=== PATIENT | male | born 1960 | race Caucasian/White ===

== ENCOUNTER 2021-11-30 05:55 | Observation (INO) ==
--- NOTE | 2021-11-29 09:47 | Anesthesiology Consultation ---
Date of Service November 29, 2021 Assessment & Plan (1) Encounter for pre-operative examination: Chart Review Chart Review: Acceptable Risk for Surgery and Patient NOT seen in Pre Admission Testing Consults Requested none History Surgery Operation Date: 11/30/21 11:55 Proposed Procedures p C6-T1 Anterior Discectomy and Fusion Spinal Cord Monitoring - Eliecer Peterson DO Height/Weight Height: 6 ft 2 in Weight: 113.398 kg Allergies Allergy/AdvReac Type Severity Reaction Status Date / Time No Known Allergies Allergy Unverified 11/28/21 12:03 Medications Home Medications Medication Instructions Recorded Confirmed Last Taken apixaban 5 mg tablet (Eliquis) 5 mg PO QAM 11/18/21 11/28/21 11/18/21 aspirin 81 mg capsule 81 mg PO QPM 11/18/21 11/28/21 Unknown diltiazem HCl 180 mg 180 mg PO QPM 11/18/21 11/28/21 Unknown capsule,extended release 24 hr montelukast 10 mg tablet 5 mg PO HS 11/18/21 11/28/21 Unknown rosuvastatin 10 mg tablet 10 mg PO QPM 11/18/21 11/28/21 Unknown prednisone 10 mg tablet 20 mg PO QAM 11/28/21 11/28/21 Unknown Past Medical History Medical History (Updated 11/29/21 @ 09:47 by Abhishek Valdez MD) Deep vein thrombosis idiopathic. followed with [facility] Hematology, Dr Palacios. ~2019. no problems since. follows with pcp currently for management. History of recent steroid use Hyperlipidemia Hypertension On anticoagulant therapy SCC (squamous cell carcinoma) Past Family History Family History Other No family history of adverse response to anesthesia Past Surgical History Surgical History H/O lumbar discectomy (~1989) L4-L5 at [facility] History of repair of rotator cuff History of surgical removal of skin lesion S/P left knee arthroscopy S/P right knee arthroscopy STOP BANG Total 3 Social History Smoking Status: Never smoker Do You Dip or Chew Tobacco: No Hx Alcohol Use: No Hx Substance Use: No substance use type: does not use Testing Laboratory Results Laboratory Tests 01/02/22 01/02/22 16:03 16:03 WBC 9.92 Hgb 16.3 Hct 48.7 Plt Count 311 Sodium 139 Potassium 4.0 Chloride 108 H Carbon Dioxide 23 BUN 29 H Creatinine 0.88 Glucose 133 H Electrocardiogram Date: 11/18/21 Findings: + NSR @ (88) NSR. Possible LAE. Septal infarct, age undetermined. Echocardiogram Date: 05/19/20 EF 55%. Preserved systolic function. RV normal size and systolic function. Other Testing 06/07/21. Negative ECG stress test with workload of 10 METS. No chest pain. No arrhythmia.
[2021-11-30] MEDS ORDERED: ceFAZolin 2000MG 2,000 MG/15 ML SYR IV SCH (06:00)
[2021-11-30] MEDS ORDERED: LR 15ML/HR IV SCH (06:00)
[2021-11-30] MEDS ORDERED: ACETAMINOPHEN 500 MG TAB PO SCH (06:00)
[2021-11-30] MEDS ORDERED: GABAPENTIN 600 MG DOSE PO SCH (06:00)
[2021-11-30] MEDS ORDERED: CeleBREX 200 MG CAP PO SCH (06:00)
[2021-11-30] MEDS ORDERED: REMIFENTANIL HCL 1 MG VIAL ONE ×2 (06:14→06:38)
[2021-11-30] MEDS ORDERED: SUGAMMADEX SODIUM 200 MG/2 ML VIAL IV ONE (06:15)
[2021-11-30] MEDS ORDERED: MIDAZOLAM HCL 1 MG/ML 2ML VIAL ONE (06:36)
[2021-11-30] MEDS ORDERED: HYDROmorphone INJ 2 MG/ML SYR/VIAL ONE (06:36)
[2021-11-30] MEDS ORDERED: KETAMINE 50 MG/5 ML SYRINGE ONE (06:36)
[2021-11-30] MEDS ORDERED: LABETALOL HCL IV 5 MG/ML 20ML IV PRN (07:01)
[2021-11-30] MEDS ORDERED: ONDANSETRON INJ 2 MG/ML 2 ML VIAL IV PRN ×2 (07:01→11:36)
[2021-11-30] MEDS ORDERED: PROMETHAZINE HCL 12.5 MG in SODIUM CHLORIDE 0.9% 50 ML IV PRN (07:01)
[2021-11-30] MEDS ORDERED: ATROPINE SULFATE 0.1 MG/ML 10ML SYR IV PRN (07:01)
--- NOTE | 2021-11-30 07:34 | History & Physical Bridge Note ---
Date of Service November 30, 2021 History & Physical Bridge Note I have examined the patient, reviewed the History & Physical and in the interval since the performance of the History & Physical I have noted the following changes of clinical significance: no changes noted
--- NOTE | 2021-11-30 07:35 | History & Physical Report ---
Date of Service November 30, 2021 Assessment & Plan (1) Cervical radiculopathy: Plan: Anterior cervical discectomy and fusion C6-C7 C7-T1 History of Present Illness Chief Complaint: Neck and arm pain Primary Care Provider: Valdo Jacobsen DO This is a 61-year-old male who presents with marked left arm pain and weakness is here for urgent surgery. Allergies Allergy/AdvReac Type Severity Reaction Status Date / Time No Known Allergies Allergy Verified 11/30/21 06:20 Home Medications Medication Instructions Recorded Confirmed Type apixaban 5 mg tablet (Eliquis) 5 mg PO QAM 11/18/21 11/30/21 History aspirin 81 mg capsule 81 mg PO QPM 11/18/21 11/30/21 History diltiazem HCl 180 mg 180 mg PO QPM 11/18/21 11/30/21 History capsule,extended release 24 hr montelukast 10 mg tablet 5 mg PO HS 11/18/21 11/30/21 History rosuvastatin 10 mg tablet 10 mg PO QPM 11/18/21 11/30/21 History prednisone 10 mg tablet 20 mg PO QAM 11/28/21 11/30/21 History Past Med/Surg History Medical History Deep vein thrombosis idiopathic. followed with [facility] Hematology, Dr Palacios. ~2019. no problems since. follows with pcp currently for management. History of recent steroid use Hyperlipidemia Hypertension On anticoagulant therapy SCC (squamous cell carcinoma) Surgical History H/O lumbar discectomy (~1989) L4-L5 at [facility] History of repair of rotator cuff History of surgical removal of skin lesion S/P left knee arthroscopy S/P right knee arthroscopy Family History Other No family history of adverse response to anesthesia Social History Smoking Status: Never smoker Second Hand Exposure: No; Do You Dip or Chew Tobacco: No; Tobacco Cessation Education Requested by Patient: No Hx Alcohol Use: No Hx Substance Use: No Preferred Language: Polish Communication Ability: Effective Scanner Supervisor Required: No Beliefs That Will Affect Care: None Current Living Situation: Spouse Other Information That Helps Us Care for You: No Feels Safe at Home: Yes Safety Concerns: Feels Safe At This Time Assistive Devices: None Physical Exam Physical Exam: Patient is alert and oriented Heart regular in rhythm Lungs clear Results & Data ([facility]) Vital Signs (Past 12 Hours) Vital Signs Temp Pulse Resp BP Pulse Ox 11/30/21 06:17 36.5 C 87 20 167/94 H 97
[2021-11-30] MEDS ORDERED: ONDANSETRON INJ 2 MG/ML 2 ML VIAL ONE (08:37)
[2021-11-30] MEDS ORDERED: ePHEDrine sulfate 50 MG/ML AMP ONE (08:37)
[2021-11-30] MEDS ORDERED: PROPOFOL IV EMULSION 10 MG/ML 20 ML VIAL IV ONE (08:37)
[2021-11-30] MEDS ORDERED: LIDOCAINE 2% 2 ML VIAL/AMP(20MG/ML) INFIL ONE (08:37)
[2021-11-30] MEDS ORDERED: DEXAMETHASONE SOD INJ 4 MG/ML VIAL ONE (08:37)
[2021-11-30] MEDS ORDERED: ROCURONIUM BROMIDE 10 MG/ML 5 ML VIAL IV ONE (08:37)
[2021-11-30] MEDS ORDERED: PROPOFOL IV EMULSION 10 MG/ML 100 ML VIAL IV ONE (08:37)
[2021-11-30] MEDS ORDERED: KETOROLAC 30 MG/ML VIAL ONE (09:05)
[2021-11-30] MEDS ORDERED: FLOSEAL HEMOSTATIC MATRIX 10ML TOP ONE (09:37)
--- NOTE | 2021-11-30 10:09 | Operative Report ---
Post Operative Report Pre & Post Diagnosis Operation Date: 11/30/21 07:45 Pre-Op Diagnosis: Spinal Stenosis, Cervical Region Post-Op Diagnosis: Spinal Stenosis, Cervical Region I identified the patient and participated in the time-out.: Yes Procedure Operation Date: 11/30/21 07:45 Actual Procedures #1 Anterior cervical discectomy with bilateral foraminotomies C6-C7 C7-T1. #2 anterior cervical arthrodesis C6-C7 C7-T1. #3 placement of 8 mm spiral cage C6- C7 10 mm spiral cage C7-T1 both filled with I factor. #4 application of mari plate and screws from C6-T1. Surgeon Eliecer Peterson, DO Husbandry Technician Rony Jimenez Estimated Blood Loss 25 Findings Consistent with Post-Op Diagnosis Specimens None Indications This is a 61-year-old male who presents with marked radiculopathy and strength deficit affecting left upper extremity. Subsequently he is here for urgent surgery. Description of Procedure Patient was met with identified informed consent obtained. Patient was then taken to the operative suite underwent a patient placed in spine position on the [place] table with head Villanueva screwhead stoner and polisher. All bony prominences well-padded eyes inspected to ensure no external pressure placed upon the. This point the anterior cervical spine was prepped and draped in normal sterile fashion. With assistance of fluoroscopy identified the C7 vertebral body and a transverse incision was placed along the right anterior aspect of the cervical spine overlying his region. Blunt dissection with the assistance of bipolar electrocautery was then performed down to and exposing the anterior cervical spine from C6-T1. Self-retaining retractors placed. Then performed a complete discectomy of C6-C7 out to the uncovertebral joints bilaterally. [place] distracting pins were utilized. Bilateral foraminotomies performed. Endplates burred to subcortical bleeding bone and 8 mm spiral cage filled with I factor tapped in position. Then proceeded to C7-T1 and again a complete discectomy was performed. Removed all posterior annular fibers longitudinal ligament massive disc material noted in the left neuroforamen was removed in its entirety. The endplates were then burred to subcortical bleeding bone and a 10 mm spiral cage filled with I factor tapped in position. Distracting apparatus was removed and a 5 complete and screws applied with the assistance of fluoroscopy. The incision was then copiously irrigated explored to ensure no damage to surrounding structures remaining bleeding. 10 round KI drain inserted. The incision was then closed with 1 Vicryl the fascia 2-0 Vicryl subcutaneously and 4 Monocryl for final skin closure. Steri-Strip sterile dressings placed. Patient waken taken to PACU stable condition. Please note spinal cord monitoring was utilized at the procedure no changes noted. Lastly Rony Jimenez was present at the entire procedure involved the patient positioning complex portions of the surgery and final skin closure. I attest to the content of the Intraoperative Record and any orders documented therein. Any exceptions are noted below.
--- NOTE | 2021-11-30 10:42 | Fluoroscopy Report ---
INTRAOPERATIVE RADIOGRAPHS CLINICAL HISTORY: C6-T1 spinal fusion. Fluoroscopy time: 14 seconds. FINDINGS: 3 spot fluoroscopic views of the cervical spine are presented. There is postoperative jewell e from discectomy at C6-C7 and C7-T1 with anterior fusion at C6-T1. The orthopedic hardware appears i ntact. IMPRESSION: Intraoperative images from cervical spinal fusion as above. Electronically signed by: Augustine Jacques M.D. 11/30/2021 10:40 AM
[2021-11-30] MEDS: HYDROmorphone INJ 1 MG/ML SYRINGE IV PRN ×3 (10:54→13:22)
--- NOTE | 2021-11-30 11:19 | Anesthesiology Progress Note ---
Date of Service November 30, 2021 Anesthesia Post Procedure Vital Signs Vital Signs: Temp Pulse Pulse Resp BP Pulse Ox 11/30/21 11:10 36.5 C 76 14 138/89 95 11/30/21 11:00 80 18 131/85 93 11/30/21 10:50 82 14 151/97 H 98 11/30/21 10:40 77 12 147/92 H 97 11/30/21 10:30 76 14 155/91 H 97 11/30/21 10:20 36.4 C L 80 12 155/95 H 97 11/30/21 06:17 36.5 C 87 20 167/94 H 97 Pain Intensity Neck: Pain Intensity: 2 Transfer of Care Handoff Completed per policy Notes Mental Status: alert / awake / arousable Patient Amnestic to Procedure: Yes Nausea / Vomiting: adequately controlled Pain: adequately controlled Airway Patency, RR, SpO2: stable & adequate BP & HR: stable & adequate Hydration State: stable & adequate Anesthetic Complications: no major complications apparent
[2021-11-30] MEDS ORDERED: ACETAMINOPHEN 1,000 MG/100 ML VIAL IV PRN (11:36)
[2021-11-30] MEDS ORDERED: ACETAMINOPHEN 500 MG TAB PO PRN (11:36)
[2021-11-30] MEDS ORDERED: FAMOTIDINE 20 MG TAB PO PRN (11:36)
[2021-11-30] MEDS ORDERED: ALUMINUM/MAGNESIUM SUSP 30 ML UDC PO PRN (11:36)
[2021-11-30] MEDS ORDERED: LORazepam 0.5 MG TAB PO PRN (11:36)
[2021-11-30] MEDS ORDERED: traMADol HCL 50 MG TABLET PO PRN (11:36)
[2021-11-30] MEDS ORDERED: PROMETHAZINE HCL IV PRN (11:36)
[2021-11-30] MEDS ORDERED: dexAMETHasone 8 MG in SYRINGE 0 ML IV PRN (11:36)
[2021-11-30] MEDS ORDERED: ONDANSETRON 4 MG OD TAB PO PRN (11:36)
[2021-11-30] MEDS ORDERED: SOD PHOSPHATE/SOD BIPHOSPHATE ENEMA 132 ML BTL PR PRN (11:36)
[2021-11-30] MEDS ORDERED: DEXTROSE 5% IV PRN (11:36)
[2021-11-30] MEDS ORDERED: RACEPINEPHRINE 2.25% NEBU SOLN 0.5 ML VIAL INH PRN (11:36)
[2021-11-30] MEDS ORDERED: NALOXONE HCL 0.4 MG/1 ML VIAL/CARP IV PRN (11:36)
[2021-11-30] MEDS ORDERED: MAGNESIUM HYDROXIDE SUSP 30 ML UDC PO PRN (11:36)
[2021-11-30] MEDS ORDERED: hydrOXYzine HCl 25 MG TAB PO PRN (11:36)
[2021-11-30] MEDS ORDERED: oxyCODONE HCL IR 5 MG TAB (IMMEDIATE RELEASE) PO PRN (11:36)
[2021-11-30] MEDS ORDERED: METOCLOPRAMIDE HCL INJ 5 MG/ML 2 ML VIAL IV PRN (11:36)
[2021-11-30] MEDS ORDERED: LORazepam 0.5 MG/1 ML VIAL IV PRN (11:36)
[2021-11-30] MEDS ORDERED: HYDROmorphone INJ 1 MG/ML SYRINGE IV PRN (11:36)
[2021-11-30] MEDS ORDERED: bisacodyL 10 MG SUPP PR PRN (11:36)
[2021-11-30] MEDS ORDERED: DO NOT ADMINISTER PNEUMOCOCCAL VACCINE PRN (11:36)
[2021-11-30] MEDS ORDERED: diphenhydrAMINE Capsule 25 MG CAP PO PRN (11:36)
[2021-11-30] MEDS ORDERED: DO NOT ADMINISTER FLU VACCINE PRN (11:36)
[2021-11-30] MEDS: LACTATED RINGER'S 1,000 ML IV SCH ×3 (12:16→23:44)
[2021-11-30] MEDS: HYDROmorphone INJ 0.5 MG/0.5 ML SYR IV PRN ×2 (14:39→21:31)
--- NOTE | 2021-11-30 16:17 | Consultation ---
Date of Consultation November 30, 2021 Assessment & Plan (1) S/P spinal surgery: Post op day# 0 S/P ACDF by Dr Kristen SIMONS#25ml -pain management per ortho -wound management per ortho -PT/OT as appropriate -DVT prophylaxis per ortho -monitor H&H for acute blood loss anemia, Pre-op Hgb: 16.3 (2) H/O paroxysmal supraventricular tachycardia: -Continue diltiazem (3) Hypertension: -Continue diltiazem (4) Hyperlipidemia: -Continue rosuvastatin (5) History of pulmonary embolism: Reports unprovoked PE in 2019. On chronic Eliquis -Eliquis on hold currently DVT Prophylaxis -SCDs Disposition per primary service Follows with Dr Lowe in [place] for routine care Pt was seen and care coordinated with Dr Rosen. See addendum Thank you for this consultation. We will follow the patient with you during their hospital stay. You can reach a [facility]/06 via [facility] Supervising Physician Co-Signing Physician Notes Care coordinated with Meghan Plunkett PA-C. Agree with above note. P atient seen and examined. Please refer to her notes for full details. Vital signs reviewed. Physical exam: General exam: Alert and oriented. Not in acute distress. Neck: in neck collar CVS: S1 and S2 heard, regular rate and rhythm, no murmurs. RS: Clear to auscultation, no wheezing or crackles. ABD: Soft, bowel sounds present, nontender, no distention. CHORAL DIRECTOR: Nonfocal. EXT: No edema, no erythema. Labs: Reviewed. Assessment and plan: 61M hx of unproved PE on eliquis, Hx of PSVT is s/p cervical spine surgery. Meghan says his was having weakness in his left hand and pain in shoulder for several weeks now. 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 S/p Cervical spine discectomy C6-7 management as per ortho. Hx of PE unprovoked 2019 on eliquis which is held for surgery to restart as soon as possible. hx of PSVT on diltiazem will monitor Other diagnosis and plan of care as per Meghan Plunkett PA-C.. Mariano mckenna MD. History of Present Illness Requesting Physician: Dr Peterson Reason for Consultation: Post op medical management Attending Physician: Eliecer Peterson, DO History of Present Illness Patient is a 61-year-old male with PMH HTN, HLD, paroxysmal SVT, h/o unprovoked PE in 2019 has been on chronic Eliquis since seen in medical consultation s/p ACDF today by Dr. Peterson. Postop patient reports he is doing well. Reports pain is controlled. Prior to surgery patient had significant weakness to the left hand and meter installer strength, postop patient is happy that his meter installer strength has returned. Reports some paresthesias to left fingers which were present prior to surgery as well. Patient is drinking soda and water and denies any choking. Denies fever/chills, diaphoresis, N/V/D/C, BETANCOURT, dizziness, vision changes, CP, SOB, orthopnea, palpitations, cough, sore throat, choking, otalgia, rhinorrhea, abdominal pain, extremity edema, rashes, urinary symptoms. Allergies Allergy/AdvReac Type Severity Reaction Status Date / Time No Known Allergies Allergy Verified 11/30/21 06:20 Home Medications Medication Instructions Recorded Confirmed Type apixaban 5 mg tablet (Eliquis) 5 mg PO QAM 11/18/21 11/30/21 History aspirin 81 mg capsule 81 mg PO QPM 11/18/21 11/30/21 History diltiazem HCl 180 mg 180 mg PO QPM 11/18/21 11/30/21 History capsule,extended release 24 hr montelukast 10 mg tablet 5 mg PO HS 11/18/21 11/30/21 History rosuvastatin 10 mg tablet 10 mg PO QPM 11/18/21 11/30/21 History prednisone 10 mg tablet 20 mg PO QAM 11/28/21 11/30/21 History gabapentin 300 mg capsule 300 mg PO HS 11/30/21 11/30/21 History oxycodone 5 mg tablet 5 mg PO Q6H PRN #20 tab 11/30/21 Rx tramadol 50 mg tablet 50 mg PO Q6H PRN #20 tab 11/30/21 Rx Patient History Medical History (Updated 11/30/21 @ 17:01 by Meghan Plunkett PA-C) Deep vein thrombosis idiopathic. followed with [facility] Hematology, Dr Palacios. ~2019. no problems since. follows with pcp currently for management. H/O paroxysmal supraventricular tachycardia History of pulmonary embolism History of recent steroid use Hyperlipidemia Hypertension On anticoagulant therapy SCC (squamous cell carcinoma) Surgical History (Updated 11/30/21 @ 17:01 by Meghan Plunkett PA-C) H/O lumbar discectomy (~1989) L4[facility]L5 at [facility] History of repair of rotator cuff History of surgical removal of skin lesion S/P left knee arthroscopy S/P right knee arthroscopy Family History Other No family history of adverse response to anesthesia Social History Smoking Status: Never smoker Second Hand Exposure: No; Do You Dip or Chew Tobacco: No; Tobacco Cessation Education Requested by Patient: No Hx Alcohol Use: No Hx Substance Use: No Preferred Language: Syriac Communication Ability: Effective Dip Unit Operator Required: No Beliefs That Will Affect Care: None Current Living Situation: Spouse Other Information That Helps Us Care for You: No Feels Safe at Home: Yes Safety Concerns: Feels Safe At This Time Assistive Devices: None Review of Systems Review of Systems: All systems reviewed & are unremarkable except as noted in HPI & below Physical Exam Physical Exam: General: no distress, WDWN Head: normocephalic, atraumatic Eyes: conjunctiva non-injected, anicteric ENT: normal inspection external ears, nose, mucous membranes moist Neck: anterior neck with surgical dressing in place and is dry, +KI drain with scant amount of serosanguineous draiange, supple, trachea midline Lungs: clear, no respiratory distress, no wheezing/rhonchi/rales CV: RRR, no murmur, no pretibial edema Abd: normal BS, soft, non-tender Ext: no cyanosis, no calf tenderness Neuro: A&O x 3, no focal deficits noted, normal affect Skin: warm, dry Results & Data ([facility]) Vital Signs (Past 12 Hours) Vital Signs Temp Pulse Pulse Pulse Resp BP Pulse Ox 11/30/21 14:20 36.8 C 96 H 16 143/90 H 93 11/30/21 14:15 85 17 140/84 92 11/30/21 13:45 36.5 C 91 H 15 143/85 H 94 11/30/21 13:22 97 H 14 94 11/30/21 13:15 87 18 127/82 92 11/30/21 13:00 88 16 134/83 93 11/30/21 12:45 85 14 140/75 92 11/30/21 12:30 85 16 137/81 93 11/30/21 12:15 85 12 143/87 H 94 11/30/21 12:00 79 14 139/89 93 11/30/21 11:45 82 18 139/89 93 11/30/21 11:30 83 20 132/88 93 11/30/21 11:20 74 20 138/87 94 11/30/21 11:10 36.5 C 76 14 138/89 95 11/30/21 11:00 80 18 131/85 93 11/30/21 10:50 82 14 151/97 H 98 11/30/21 10:40 77 12 147/92 H 97 11/30/21 10:30 76 14 155/91 H 97 11/30/21 10:20 36.4 C L 80 12 155/95 H 97 11/30/21 06:17 36.5 C 87 20 167/94 H 97
[2021-11-30] MEDS: dexAMETHasone 6 MG in SYRINGE 0 ML IV SCH ×2 (16:36→23:45)
[2021-11-30] MEDS: ceFAZolin 2000MG 2,000 MG/15 ML SYR IV SCH ×2 (16:36→23:45)
[2021-11-30] MEDS ORDERED: dilTIAZem HCL 180 MG CAPCR PO SCH (21:00)
[2021-11-30] MEDS ORDERED: GABAPENTIN 300 MG CAP PO SCH (21:00)
[2021-11-30] MEDS ORDERED: ROSUVASTATIN CALCIUM 10 MG TAB PO SCH (21:00)
[2021-11-30] MEDS ORDERED: ASPIRIN 81 MG ECTAB PO SCH (21:00)
[2021-11-30] MEDS ORDERED: DOCUSATE SODIUM/SENNA 50/8.6MG TAB PO SCH (21:00)
[2021-11-30] MEDS ORDERED: MONTELUKAST SODIUM 10 MG TABLET PO SCH (21:00)
[2021-12-01] MEDS: POLYETHYLENE (MIRALAX) 17 GM PACK PO SCH ×2 (06:05→11:29)
[2021-12-01] MEDS: dexAMETHasone 6 MG in SYRINGE 0 ML IV SCH (08:04)
--- NOTE | 2021-12-01 08:39 | Discharge Summary ---
Date of Service December 01, 2021 Admission HPI Per Admitting Provider This is a 61-year-old male who presents with marked left arm pain and weakness is here for urgent surgery. Discharge Data Consultations 11/30/21 11:36 Consult Hospitalist Routine Procedures Performed Operation Date: 11/30/21 07:45 Actual Procedures p C6-T1 Anterior Discectomy and Fusion, Spinal Cord Monitoring(Not Applicable) - Eliecer Peterson DO Hospital Course (1) Cervical radiculopathy: Patient is a pleasant 61-year-old male history physical examination Images consistent with the above-mentioned diagnosis. For this reason is brought to the operating room on 11/30/2021 and undergone anterior cervical discectomy and fusion at C6-7 and C7-T1. He left the operating room with a KI drain in place and is transferred PACU in stable condition. Postoperative day 1 he is doing well his pain is controlled he is tolerating p.o. and swallowing well. And he is deemed safe for home discharge. He is not to lift anything heavier than 5 to [address] He is to keep his collar in place when he is up and walking or in a motor vehicle. He is to change dressing once daily until the dressing is dry once it is dry he may leave it off. He is to see us in the office approximately 2 weeks or sooner if he develops any increased pain numbness tingling difficulty swallowing or drainage from the incision.
[2021-12-01 10:57] LABS: Hemoglobin 14.3 g/dL (14.0-18.0); Mean Corpuscular Hemoglobin 30.1 pg (25-34); Mean Corpuscular Hgb Conc 33.3 g/dL (32-36); Mean Corpuscular Volume 90.5 fL (80-100); Platelet Count 220 K/uL (130-400); RDW Coefficient of Variation 13.9 % (11.5-14.5); Red Blood Count 4.75 M/uL (4.7-6.1)
[2021-12-01 11:26] LABS: Calcium 8.6 mg/dl (8.5-10.1); Creatinine Clr Calc Pharmacy 165.4 ml/min; Est GFR (African American) 124.1 ml/min; Est GFR (Non-African American) 107.1 ml/min; Potassium 4.1 mmol/L (3.5-5.1)
--- NOTE | 2021-12-01 16:06 | Hospitalist Progress Note ---
Date of Service December 01, 2021 Assessment & Plan (1) S/P spinal surgery: Plan: (1) S/P spinal surgery: Post op day# 1 S/P ACDF by Dr Kristen SIMONS#25ml Pain management/PT/OT/DVT prophylaxis per Ortho. Monitor H&H for acute blood loss anemia Incentive spirometer. (2) H/O paroxysmal supraventricular tachycardia: -Continue diltiazem (3) Hypertension: -Continue diltiazem (4) Hyperlipidemia: -Continue rosuvastatin (5) History of pulmonary embolism: Reports unprovoked PE in 2019. On chronic Eliquis -Eliquis to be resumed per orthopedics. DVT Prophylaxis -SCDs Disposition per primary service Admission and Anticipated Discharge Date Admission Date: November 30, 2021 Subjective Patient was lying in bed, on room air, NAD, with cervical collar, KI drain in situ with minimal serosanguineous collection, no new acute events overnight, pain under control. Patient denies fever/chills/chest pain/palpitations/other review of symptoms. Patient reports eating okay. Patient is moving gas but hasn't moved bowel. Patient reports pain well controlled. Physical Exam Physical Exam: GENERAL: Alert and oriented x3. NAD, on RA. HEENT: No pallor, no icterus. Pupils equal, round and reactive to light. Oral mucosa moist. NECK: No JVD, no neck masses. Cervical collar in situ, KI drain in situ, clean dressing with no soakage. KI drain with minimal serosanguineous collection noted. HEART: S1 and S2 heard. Regular rate and rhythm. No murmur, no gallop. RESPIRATORY SYSTEM: Normal AP diameter. No accessory muscle use. No wheezing, no crackles. ABDOMEN: Soft, bowel sounds present, nontender, no distention. CENTRAL NERVOUS SYSTEM: No facial droop. Speech is clear. Obeys simple commands. Moves extremities. EXTREMITIES: Trace BLE edema, no erythema seen. Results & Data Results & Data ([facility]) Vital Signs (Past 12 Hours) Vital Signs Temp Pulse Pulse Resp BP BP Pulse Ox 12/01/21 11:30 36.6 C 71 91 H 16 145/91 H 143/90 H 93 12/01/21 11:08 91 H 16 93 12/01/21 09:49 36.6 C 71 89 16 145/91 H 143/90 H 92 12/01/21 08:01 89 16 92 12/01/21 06:01 36.6 C 86 18 145/91 H 92 12/01/21 04:05 71 18 92
== END 2021-12-01 12:58 | disposition home or self-care (01) ==
LOC: ASU 05:55 → INTOOBSV 10:12 → PACUINP 10:12 → 3E 14:39

== ENCOUNTER 2023-03-26 09:03 | Inpatient (IN) ==
[2023-03-26] MEDS ORDERED: STAT IV Infusion **Titration per Protocol STA (09:31)
[2023-03-26] MEDS ORDERED: dilTIAZem HCl 5 MG/ML 5 ML VIAL IV STA (09:31)
--- NOTE | 2023-03-26 09:35 | Emergency Department Note ---
Impression & Plan Atrial fibrillation with rapid ventricular response, SOB (shortness of breath), Weakness, Fatigue ED Provider Note NAME: ROSIBEL BEASLEY AGE: 62 SEX: M : 1960 ARRIVES VIA: Walk-In INFORMANT: [Patient] ED PROVIDER(S): [Augustine Estrada MD] CHIEF COMPLAINT: Palpitations, arrhythmia HISTORY OF PRESENT ILLNESS: The patient is a 62-year-old male with a history of DVT as well as A-fib. He has undergone previous ablation for A-fib. He is still on Cardizem as well as Eliquis. In the last week, the patient has felt very short of breath, weak and tired. He has noticed shortness of breath primarily with exertion. No chest pain, no palpitations. Patient saw Dr. Darby of cardiology today. He was found to be in a rapid A-fib, he was sent to the ED for evaluation and potential admission. PMHx/PSHx: See Below SOCIAL HISTORY: See Below. PHYSICAL EXAM: GENERAL: Patient is in no acute distress. HEENT: No acute trauma, normocephalic atraumatic, mucous membranes moist, no nasal congestion. NECK: No stridor, no adenopathy, no meningismus, trachea is midline. LUNGS: Clear to auscultation bilaterally, no wheeze, no rhonchi, breath sounds equal. HEART: Tachycardic with an irregular rhythm, no murmurs. ABDOMEN: Soft, nontender, bowel sounds positive, no peritonitis. EXTREMITIES: No cyanosis or edema, full range of motion of all the joints without pain or difficulty, no signs for acute trauma. NEUROLOGIC: Oriented x 3, no acute motor or sensory deficits, no focal weakness. SKIN: No rash, no jaundice, no diaphoresis. DIFFERENTIAL DIAGNOSIS: A-fib or a flutter, anemia, electrolyte imbalance, ventricular tachycardia, SVT, KS, among others. EMERGENCY DEPARTMENT COURSE/PROCEDURES: Prior/Outside records reviewed: Cardiology notes. ECG per my interpretation: Indication was weakness and tachycardia. The ECG shows a rapid A-fib with a rate of 138. There is some nonspecific ST change diffusely. There is potential old septal infarct. There is no ST elevation, no PVCs. The QTc is 460. Continuous Cardiac Monitoring per my interpretation: An order was placed for continuous cardiac monitoring. The monitor shows a rate of 142 with rapid atrial fibrillation. Critical Care Note: I have personally spent 48 minutes of critical care time in the direct management of this patient. This includes bedside care, interpretation of diagnostic studies, and testing, discussion with consultants, patient, and family members, and other required patient management activities. This 48 minutes is in excess of all separately billable procedures. MEDICAL DECISION MAKING: There is no leukocytosis or concerning anemia. There is a normal platelet count. No renal failure or significant electrolyte abnormality. No concerning liver enzyme elevation. The patient appears to be in a euthyroid state. ECG shows rapid atrial fibrillation, no obvious ischemia. Cardiac enzyme testing x1 is not consistent with acute cardiac injury. COVID test returned negative. Chest film per my review did not show CHF or pneumonia. On exam, the patient was tachycardic and appeared to be in atrial fibrillation. Patient received an IV bolus of diltiazem, he was placed on a diltiazem drip. The patient's heart rate is now controlled although, he remains in atrial fibrillation. I spoke with the patient, I spoke with case management. I did consult Dr. Darby of cardiology. Hospitalization has been advised. I spoke with the on-call hospitalist. The patient is aware of the need for a hospital stay. DISPOSITION: The patient's presentation and findings warrant a hospital stay. Past Med/Surg History Medical History Deep vein thrombosis idiopathic. followed with [facility] Hematology, Dr Palacios. ~2019. no problems since. follows with pcp currently for management. H/O paroxysmal supraventricular tachycardia History of pulmonary embolism History of recent steroid use Hyperlipidemia Hypertension On anticoagulant therapy SCC (squamous cell carcinoma) Surgical History H/O lumbar discectomy (~1989) L4-L5 at [facility] History of repair of rotator cuff History of surgical removal of skin lesion S/P left knee arthroscopy S/P right knee arthroscopy Family History Other No family history of adverse response to anesthesia Social History Smoking Status: Never smoker Second Hand Exposure: No; Do You Dip or Chew Tobacco: No; Hx Alcohol Use: No Hx Substance Use: No Preferred Language: Irish Communication Ability: Effective [employer] Required: No Beliefs That Will Affect Care: None Current Living Situation: Spouse Other Information That Helps Us Care for You: No Feels Safe at Home: Yes Safety Concerns: Feels Safe At This Time Assistive Devices: None Allergies Allergies Allergy/AdvReac Type Severity Reaction Status Date / Time No Known Allergies Allergy Verified 07/02/22 07:31 Home Meds Home Medications Medication Instructions Recorded Confirmed apixaban 5 mg tablet (Eliquis) 5 mg PO BID 11/18/21 03/26/23 aspirin 81 mg capsule 81 mg PO QAM 11/18/21 03/26/23 diltiazem HCl 180 mg 240 mg PO QAM 11/18/21 03/26/23 capsule,extended release 24 hr rosuvastatin 10 mg tablet 10 mg PO QPM 11/18/21 03/26/23 montelukast 10 mg tablet 10 mg PO HS 03/26/23 03/26/23 Previous Rx's Medication Instructions Recorded albuterol sulfate 90 mcg/actuation 2 inha inhalation QID PRN 08/16/22 aerosol inhaler shortness of breath or wheezing #1 inhaler Results & Data (ED) Vital Signs Vital Signs - 24 hr 03/26/23 09:12 03/26/23 09:39 03/26/23 09:39 Temperature 36.1 C L Temperature Source Temporal Artery Scan Pulse Rate 77 138 H Pulse Rate [Apical] 121 H Pulse Rate from SpO2 Sensor Pulse Rhythm Irregular Pulse Rhythm [Apical] Irregular Respiratory Rate 24 18 18 Respiratory Effort / Characteristics Non-Labored Spontaneous Non-Labored Spontaneous Respiratory Depth Normal Normal Respiratory Pattern Regular Blood Pressure 118/80 Blood Pressure [Right Arm] 140/102 H Blood Pressure Mean 92 Blood Pressure Mean [Right Arm] 114 Pulse Oximetry 95 95 95 Oxygen Delivery Method Room Air Room Air Room Air Sepsis New/Unexplained Change in Mental Status N/A Sepsis Action Taken by Nursing No Action Required 03/26/23 09:55 03/26/23 10:20 03/26/23 10:00 Temperature Temperature Source Pulse Rate 124 H 117 H Pulse Rate [Apical] Pulse Rate from SpO2 Sensor 84 Pulse Rhythm Pulse Rhythm [Apical] Respiratory Rate 21 Respiratory Effort / Characteristics Non-Labored Spontaneous Respiratory Depth Normal Respiratory Pattern Regular Blood Pressure 130/88 Blood Pressure [Right Arm] Blood Pressure Mean 102 Blood Pressure Mean [Right Arm] Pulse Oximetry 92 Oxygen Delivery Method Room Air Sepsis New/Unexplained Change in Mental Status Sepsis Action Taken by Nursing 03/26/23 10:30 03/26/23 10:30 03/26/23 10:45 Temperature Temperature Source Pulse Rate 84 87 Pulse Rate [Apical] Pulse Rate from SpO2 Sensor 87 76 Pulse Rhythm Pulse Rhythm [Apical] Respiratory Rate 16 23 Respiratory Effort / Characteristics Respiratory Depth Respiratory Pattern Blood Pressure 115/86 Blood Pressure [Right Arm] Blood Pressure Mean 95 Blood Pressure Mean [Right Arm] Pulse Oximetry 94 94 Oxygen Delivery Method Sepsis New/Unexplained Change in Mental Status Sepsis Action Taken by Nursing 03/26/23 11:00 03/26/23 11:00 03/26/23 11:15 Temperature Temperature Source Pulse Rate 80 80 Pulse Rate [Apical] Pulse Rate from SpO2 Sensor 82 84 Pulse Rhythm Pulse Rhythm [Apical] Respiratory Rate 18 18 Respiratory Effort / Characteristics Respiratory Depth Respiratory Pattern Blood Pressure 130/83 Blood Pressure [Right Arm] Blood Pressure Mean 98 Blood Pressure Mean [Right Arm] Pulse Oximetry 95 95 Oxygen Delivery Method Sepsis New/Unexplained Change in Mental Status Sepsis Action Taken by Nursing 03/26/23 11:30 03/26/23 11:30 03/26/23 11:45 Temperature Temperature Source Pulse Rate 80 90 Pulse Rate [Apical] Pulse Rate from SpO2 Sensor 74 82 Pulse Rhythm Pulse Rhythm [Apical] Respiratory Rate 20 15 Respiratory Effort / Characteristics Respiratory Depth Respiratory Pattern Blood Pressure 111/75 Blood Pressure [Right Arm] Blood Pressure Mean 87 Blood Pressure Mean [Right Arm] Pulse Oximetry 95 95 Oxygen Delivery Method Sepsis New/Unexplained Change in Mental Status Sepsis Action Taken by [place] Medications Current Medication List: was personally reviewed by me Laboratory Data Attestation: I reviewed the patient's lab results. 03/26/23 09:41 03/26/23 09:41 Lab Results 03/26/23 03/26/23 03/26/23 Range/Units 09:41 09:41 09:41 WBC 7.00 (4.8-10.8) K/ul RBC 5.28 (4.70-6.10) M/uL Hgb 15.3 (14.0-18.0) g/dl Hct 46.1 (42.0-52.0) % MCV 87.3 (80.0-100.0) fL MCH 29.0 (25.0-34.0) pg MCHC 33.2 (32.0-36.0) g/dL RDW Std Deviation 43.0 (36.4-46.3) fL RDW Coeff of Stanley 13.4 (11.5-14.5) % Plt Count 379 (130-400) K/uL MPV 9.1 L (9.4-12.4) fL Immature Gran % (Auto) 0.4 % Neut % (Auto) 66.5 % Lymph % (Auto) 19.0 % Lawrence % (Auto) 12.0 % Eos % (Auto) 1.4 % Baso % (Auto) 0.7 % Neut # (Auto) 4.65 (1.40-6.50) K/uL Lymph # (Auto) 1.33 (1.2-3.4) K/uL Lawrence # (Auto) 0.84 H (0.11-0.59) K/uL Eos # (Auto) 0.10 (0-0.50) K/uL Baso # (Auto) 0.05 (0-0.2) K/uL Immature Gran # (Auto) 0.03 (0.01-0.20) K/uL Sodium 139 (136-145) mmol/L Potassium 4.1 (3.5-5.1) mmol/L Chloride 109 H (98-107) mmol/L Carbon Dioxide 24 (21-32) mmol/L Anion Gap 6 (3-11) BUN 21 (6-23) mg/dl Creatinine 0.68 (0.6-1.4) mg/dl Est Cr Clr Drug Dosing 154.0 ml/min Est GFR ( Amer) 119.5 ml/min Est GFR (Non-Af Amer) 103.1 ml/min BUN/Creatinine Ratio 30.9 H (10-20) Glucose 89 (70-99(Fasting)) mg/dl Calcium 8.6 (8.6-10.3) mg/dl Magnesium 2.0 (1.7-2.4) mg/dl Total Bilirubin 0.4 (0.2-1.0) mg/dl AST 14 (13-39) U/L ALT 21 (7-52) U/L Alkaline Phosphatase 85 (34-104) U/L Troponin I High Sens 5.6 (0-20) pg/ml Total Protein 6.7 (6.0-8.3) gm/dl Albumin 3.8 (3.4-5.0) gm/dl Globulin 2.9 (2.5-4.0) gm/dl Albumin/Globulin Ratio 1.3 (0.9-2) TSH 2.215 (0.300-4.500) uIu/ml SARS-CoV-2, RNA, NAAT (NEGATIVE) 03/26/23 Range/Units 09:45 WBC (4.8-10.8) K/ul RBC (4.70-6.10) M/uL Hgb (14.0-18.0) g/dl Hct (42.0-52.0) % MCV (80.0-100.0) fL MCH (25.0-34.0) pg MCHC (32.0-36.0) g/dL RDW Std Deviation (36.4-46.3) fL RDW Coeff of Stanley (11.5-14.5) % Plt Count (130-400) K/uL MPV (9.4-12.4) fL Immature Gran % (Auto) % Neut % (Auto) % Lymph % (Auto) % Lawrence % (Auto) % Eos % (Auto) % Baso % (Auto) % Neut # (Auto) (1.40-6.50) K/uL Lymph # (Auto) (1.2-3.4) K/uL Lawrence # (Auto) (0.11-0.59) K/uL Eos # (Auto) (0-0.50) K/uL Baso # (Auto) (0-0.2) K/uL Immature Gran # (Auto) (0.01-0.20) K/uL Sodium (136-145) mmol/L Potassium (3.5-5.1) mmol/L Chloride (98-107) mmol/L Carbon Dioxide (21-32) mmol/L Anion Gap (3-11) BUN (6-23) mg/dl Creatinine (0.6-1.4) mg/dl Est Cr Clr Drug Dosing ml/min Est GFR ( Amer) ml/min Est GFR (Non-Af Amer) ml/min BUN/Creatinine Ratio (10-20) Glucose (70-99(Fasting)) mg/dl Calcium (8.6-10.3) mg/dl Magnesium (1.7-2.4) mg/dl Total Bilirubin (0.2-1.0) mg/dl AST (13-39) U/L ALT (7-52) U/L Alkaline Phosphatase (34-104) U/L Troponin I High Sens (0-20) pg/ml Total Protein (6.0-8.3) gm/dl Albumin (3.4-5.0) gm/dl Globulin (2.5-4.0) gm/dl Albumin/Globulin Ratio (0.9-2) TSH (0.300-4.500) uIu/ml SARS-CoV-2, RNA, NAAT NEGATIVE (NEGATIVE) Administered Medications Diltiazem HCl 125 mg/ Dextrose 125 mls @ 5 mls/hr IV .Q24H TSERING; Protocol Stop: 04/25/23 09:44 Last Admin: 03/26/23 10:16 Dose: 5 mg/hr, 5 mls/hr Documented By: JAKUB Co-signed By: AMBER Discontinued Medications Diltiazem HCl (Diltiazem Hcl 5 Mg/Ml 5 Ml Vial) 15 mg IV NOW STA Stop: 03/26/23 09:32 Last Admin: 03/26/23 10:15 Dose: 15 mg Documented By: JAKUB Co-signed By: AMBER Miscellaneous (Stat Iv Infusion Titration Per Protocol) 1 each N/A NOW STA Stop: 03/26/23 09:32 Last Admin: 03/26/23 11:20 Dose: 1 each Documented By: RACHELLE Imaging Data Radiologist's Impression: Chest X-Ray 03/26/23 09:20 XR chest 1V portable CLINICAL HISTORY: weakness TECHNIQUE: Single frontal radiograph of the chest was obtained. Comparison: Comparison is made to chest radiograph 08/16/2022 FINDINGS: ACDF is seen. Calcified aortic knob is seen. The lungs are clear. No evidence of pleural effusion or pneumothorax. IMPRESSION: No acute chest disease. ACT 112: Negative or not required by law. Electronically signed by: Ramirez Colvin M.D. 03/26/2023 10:14 AM Discharge Plan Visit Data Chief Complaint: Arrhythmia/Palpitations Stated Complaint: HEART PALPITATIONS,DOC REF ED Provider: Augustine Estrada Discharge Problem: Atrial fibrillation with rapid ventricular response, SOB (shortness of breath), Weakness, Fatigue Patient Disposition: Admitted As Inpatient Condition: Fair Discharge Instructions Interventions: ED Discharge Assessment Last Done: 03/26/23 13:57
[2023-03-26] MEDS ORDERED: dilTIAZem HCL 125 MG in DEXTROSE 5% 100 ML IV SCH (09:45)
[2023-03-26 09:53] LABS: Basophils # (auto) 0.05 K/uL (0-0.2); Basophils % (auto) 0.7 %; Eosinophils % (auto) 1.4 %; Hematocrit (blood only) 46.1 % (42.0-52.0); Hemoglobin 15.3 g/dl (14.0-18.0); Immature Granulocytes # (auto) 0.03 K/uL (0.01-0.20); Immature Granulocytes % (auto) 0.4 %; Lymphocytes # (auto) 1.33 K/uL (1.2-3.4); Mean Corpuscular Hgb Conc 33.2 g/dL (32.0-36.0); Mean Corpuscular Volume 87.3 fL (80.0-100.0); Mean Platelet Volume 9.1 fL (9.4-12.4); Monocytes # (auto) 0.84 K/uL (0.11-0.59); Neutrophils # (auto) 4.65 K/uL (1.40-6.50); Neutrophils % (auto) 66.5 %; Platelet Count 379 K/uL (130-400); RDW Coefficient of Variation 13.4 % (11.5-14.5); Red Blood Count 5.28 M/uL (4.70-6.10)
[2023-03-26 10:15] LABS: Albumin Level 3.8 gm/dl (3.4-5.0); Bilirubin,Total 0.4 mg/dl (0.2-1.0); Calcium 8.6 mg/dl (8.6-10.3); Potassium 4.1 mmol/L (3.5-5.1)
--- NOTE | 2023-03-26 10:16 | XRay Report ---
XR chest 1V portable CLINICAL HISTORY: weakness TECHNIQUE: Single frontal radiograph of the chest was obtained. Comparison: Comparison is made to chest radiograph 08/16/2022 FINDINGS: ACDF is seen. Calcified aortic knob is seen. The lungs are clear. No evidence of pleural effusion or pneumothorax. IMPRESSION: No acute chest disease. ACT 112: Negative or not required by law. Electronically signed by: Ramirez Colvin M.D. 03/26/2023 10:14 AM
[2023-03-26 10:21] LABS: Albumin Globulin Ratio 1.3 (0.9-2); BUN Creatinine Ratio 30.9 (10-20); Est GFR (African American) 119.5 ml/min; Est GFR (Non-African American) 103.1 ml/min; Globulin 2.9 gm/dl (2.5-4.0); Total Protein 6.7 gm/dl (6.0-8.3)
[2023-03-26 10:22] LABS: Troponin I High Sensitivity 5.6 pg/ml (0-20)
--- NOTE | 2023-03-26 11:32 | History & Physical Report ---
Date of Service March 26, 2023 Assessment & Plan (1) Atrial fibrillation with RVR: (2) H/O paroxysmal supraventricular tachycardia: (3) Hypertension: (4) Hyperlipidemia: (5) History of pulmonary embolism: Plan: - Admit to PCU while on diltiazem drip, appear rate much better controlled presently with HR in 80s-90s. -A-fib with RVR noted with heart rate in the 130s at outpatient cardiology office, patient has previously followed with both Dr. Velasco and Dr. Darby. Was referred to the ER from there. -Cardiology consulted- pending recommendations, patient may require cardioversion, Allow diet for now, keep NPO at midnight in case needs for ablation -Anticoagulated on Eliquis status post PE which occurred in 2019, patient presumes this is from COVID infection -Patient is on diltiazem p.o. baby aspirin, rosuvastatin, as an outpatient. He reports taking propafenone previously on as needed basis, he has not taken this in many months. Patient also was previously on amiodarone but has been taken off of it. -Status post cardiac ablation approximately [address] Tai DVT ppx: teds, scds, eliquis CODE: FULL Dispo: From home, likely to remain in the hospital x 1-2 days A total of 75 minutes were spent with greater than 50% of that time face to face with the patient, personally reviewing all current laboratories, imaging studies, past medication reconciliation, outpatient chart review, and discussion with specialists to collaborate care for the patient with attending. Please see attending documentation for corrections and/or additions. History of Present Illness Chief Complaint: Palpitations Primary Care Provider: Valdo Jacobsen DO This is a 62-year-old male with PMHx of atrial flutter who underwent an atrial flutter ablation in April 2002 with a history of PAF during the procedure, HTN, HLD, history of PE in 2019 on Eliquis. Patient has been followed by [facility] cardiology, Dr. Darby as an outpatient. He had been on propafenone and amiodarone previously after atrial flutter ablation, however both of these medicines have been stopped he is take p.o. di ltiazem.. Starting about 7 days ago he noticed increased palpitations and fatigue. He reports difficulty walking with minimal exertion, states that he feels winded even after 10-20 steps. Patient reports that he in the middle the night when getting up to use the restroom feels that he has a small panic attack because he is so short of breath upon returning and takes him a while to calm down and go back to sleep. Denies orthopnea. He has never required supplemental O2 previously. Patient denies any chest pain, heaviness, nausea or vomiting. From cardiology office the patient was referred to the ER for further treatment of A-fib with RVR as his heart rate was 130. It has now improved to heart rate in the 80s after initiation of Cardizem drip in the ER. Allergies Allergy/AdvReac Type Severity Reaction Status Date / Time No Known Allergies Allergy Verified 07/02/22 07:31 Home Medications Medication Instructions Recorded Confirmed Type apixaban 5 mg tablet (Eliquis) 5 mg PO BID 11/18/21 03/26/23 History aspirin 81 mg capsule 81 mg PO QAM 11/18/21 03/26/23 History diltiazem HCl 180 mg 240 mg PO QAM 11/18/21 03/26/23 History capsule,extended release 24 hr rosuvastatin 10 mg tablet 10 mg PO QPM 11/18/21 03/26/23 History albuterol sulfate 90 mcg/actuation 2 inha inhalation QID PRN 08/16/22 03/26/23 Rx aerosol inhaler shortness of breath or wheezing #1 inhaler montelukast 10 mg tablet 10 mg PO HS 03/26/23 03/26/23 History Past Med/Surg History Medical History Deep vein thrombosis idiopathic. followed with [facility] Hematology, Dr Palacios. ~2019. no problems since. follows with pcp currently for management. H/O paroxysmal supraventricular tachycardia History of pulmonary embolism History of recent steroid use Hyperlipidemia Hypertension On anticoagulant therapy SCC (squamous cell carcinoma) Surgical History H/O lumbar discectomy (~1989) L4[facility]L5 at [facility] History of repair of rotator cuff History of surgical removal of skin lesion S/P left knee arthroscopy S/P right knee arthroscopy Family History Other No family history of adverse response to anesthesia Social History Smoking Status: Never smoker Second Hand Exposure: No; Do You Dip or Chew Tobacco: No; Hx Alcohol Use: No Hx Substance Use: No Preferred Language: Portuguese Communication Ability: Effective Line Service Technician Required: No Beliefs That Will Affect Care: None Current Living Situation: Spouse Feels Safe at Home: Yes Assistive Devices: Glasses Review of Systems Review of Systems: Constitutional: No fever, chills, sweats, fatigue or weakness Eyes: No diplopia, no changes in vision ENT: No sore throat, tinnitus, or trouble swallowing Respiratory: No shortness of breath, No dyspnea at rest or on exertion, no cough or sputum Cardiovascular: No chest pain, palpitations, or flutter Abdomen: No pain, No constipation, No diarrhea, No nausea, No vomiting Musculoskeletal: No calf pain, No joint pain, No swelling Genitourinary : No dysuria or urinary frequency, No hematuria Neurologic: No numbness/tingling, no difficulty with ambulation, no sensory or motor deficits Psychiatric: No depression or anxiety symptoms Endocrine: No fatigue, No weight changes Integumentary: No itch, No rash Physical Exam Physical Exam: General: awake, alert, no apparent distress, + obese with BMI of 34.6 Head: Normocephalic, atraumatic ENT: PERRL, EOMI, no pharyngeal exudate, mucous membranes moist Chest: Clear to auscultation, on room air, no adventitious breath sounds Cardiac: Irregularly irregular, HR in 90s-110s at bedside, no murmur, no JVD, normal peripheral pulses, good capillary refill Abdominal: NABS x 4 quadrants, soft, nondistended, nontender to palpation, no rebound or guarding Extremities: Normal inspection, no peripheral edema or erythema, calfs nontender to palpation Psych: Normal mood and affect Neuro: AAO x 3, strength intact bilaterally and rated 5/5, no motor deficits, speech is clear, no peripheral sensory deficits Results & Data Results & Data Vital Signs (Past 12 Hours) Vital Signs Temp Pulse Pulse Resp BP BP Pulse Ox 03/26/23 10:00 117 H 21 130/88 92 03/26/23 10:20 03/26/23 09:55 124 H 03/26/23 09:39 138 H 18 95 03/26/23 09:39 121 H 18 140/102 H 95 03/26/23 09:12 36.1 C L 77 24 118/80 95 O2 Del Method 03/26/23 10:00 03/26/23 10:20 Room Air 03/26/23 09:55 03/26/23 09:39 Room Air 03/26/23 09:39 Room Air 03/26/23 09:12 Room Air Laboratory Results 03/26/23 03/26/23 03/26/23 09:45 09:41 09:41 WBC RBC Hgb Hct MCV MCH MCHC RDW Std Deviation RDW Coeff of Stanley Plt Count MPV Immature Gran % (Auto) Neut % (Auto) Lymph % (Auto) [place] % (Auto) Eos % (Auto) Baso % (Auto) Neut # (Auto) Lymph # (Auto) [place] # (Auto) Eos # (Auto) Baso # (Auto) Immature Gran # (Auto) Sodium 139 Potassium 4.1 Chloride 109 H Carbon Dioxide 24 Anion Gap 6 BUN 21 Creatinine 0.68 Est Cr Clr Drug Dosing 154.0 Est GFR ( Amer) 119.5 Est GFR (Non-Af Amer) 103.1 BUN/Creatinine Ratio 30.9 H Glucose 89 Calcium 8.6 Magnesium 2.0 Total Bilirubin 0.4 AST 14 ALT 21 Alkaline Phosphatase 85 Troponin I High Sens 5.6 Total Protein 6.7 Albumin 3.8 Globulin 2.9 Albumin/Globulin Ratio 1.3 TSH 2.215 SARS-CoV-2, RNA, NAAT NEGATIVE 03/26/23 09:41 WBC 7.00 RBC 5.28 Hgb 15.3 Hct 46.1 MCV 87.3 MCH 29.0 MCHC 33.2 RDW Std Deviation 43.0 RDW Coeff of Stanley 13.4 Plt Count 379 MPV 9.1 L Immature Gran % (Auto) 0.4 Neut % (Auto) 66.5 Lymph % (Auto) 19.0 [place] % (Auto) 12.0 Eos % (Auto) 1.4 Baso % (Auto) 0.7 Neut # (Auto) 4.65 Lymph # (Auto) 1.33 [place] # (Auto) 0.84 H Eos # (Auto) 0.10 Baso # (Auto) 0.05 Immature Gran # (Auto) 0.03 Sodium Potassium Chloride Carbon Dioxide Anion Gap BUN Creatinine Est Cr Clr Drug Dosing Est GFR ( Amer) Est GFR (Non-Af Amer) BUN/Creatinine Ratio Glucose Calcium Magnesium Total Bilirubin AST ALT Alkaline Phosphatase Troponin I High Sens Total Protein Albumin Globulin Albumin/Globulin Ratio TSH SARS-CoV-2, RNA, NAAT Diagnostic Findings Chest X-Ray 03/26/23 09:20 XR chest 1V portable CLINICAL HISTORY: weakness TECHNIQUE: Single frontal radiograph of the chest was obtained. Comparison: Comparison is made to chest radiograph 08/16/2022 FINDINGS: ACDF is seen. Calcified aortic knob is seen. The lungs are clear. No evidence of pleural effusion or pneumothorax. IMPRESSION: No acute chest disease. ACT 112: Negative or not required by law. Electronically signed by: Ramirez Colvin M.D. 03/26/2023 10:14 AM ECG Additional Comments: atrial fibrillation with RVR Code Status & VTE Plan Code Status Full code Supervising Physician Co-Signing Physician Notes I have seen and examined the patient and have discussed the case with the provider above. I agree with the assessment and plan as stated. The patient is a 62-year-old man with a history of atrial flutter status post ablation in April 2002 presenting with 1 week of shortness of breath and chest discomfort. In cardiac clinic this morning he was diagnosed with atrial flutter with rapid ventricular response and sent to the ER. The patient denies any caffeine intake aside from a once daily tea. He does not use any energy drinks or other stimulants. He does not smoke or drink alcohol. Thyroid function is within normal limits. He does not examine as volume overloaded. He received 15 mg of diltiazem IV and was put on a diltiazem drip with subsequent rate decrease from 138bpm to 90bpm. He still feels chest discomfort but it is slightly improved. He reports not using propafenone which he had been taking as needed for heart palpitations. He is not on amiodarone. He is on Eliquis continuously after having a PE 2 to 3 years ago. Physical exam reveals a well-nourished well-developed man in no acute distress. He is speaking in full sentences and is demonstrating normal respiratory effort. Lungs are clear to auscultation throughout. Cardiac exam reveals S1-S2 heard with no evidence of murmurs gallops or rubs. Rate is irregular and rhythm is irregular. Radial pulses are 2+ bilaterally. Pulse is irregular. Skin is warm and dry. Abdomen soft nontender nondistended. He has no evidence of peripheral edema. No gross neuro muscular deficits are present. Work-up includes an EKG revealing atrial fibrillation with rapid ventricular response with a rate of 138. There are no ST changes to suggest acute ischemia. A chest x-ray reveals no acute chest disease. Lab work reveals a normal CBC and normal CMP. Highly sensitive troponin is negative 1. Atrial fibrillation with rapid trickle response Agree with continuing diltiazem for rate control. Continue Eliquis per home regimen. Consult cardiology who is considering DC cardioversion likely tomorrow. N.p.o. after midnight. Supportive care for chest discomfort at this time. Notify MD immediately for any evidence of hypotension. DO Zay
[2023-03-26] MEDS ORDERED: FLECAINIDE ACETATE 100 MG TABLET PO ONE (13:42)
[2023-03-26] MEDS ORDERED: ONDANSETRON INJ 2 MG/ML 2 ML VIAL IV PRN (14:29)
[2023-03-26] MEDS ORDERED: ACETAMINOPHEN 325 MG TAB PO PRN (14:29)
--- NOTE | 2023-03-26 14:30 | Cardiology Consultation ---
Date of Consultation March 26, 2023 Assessment & Plan (1) Atrial fibrillation with RVR: (2) History of pulmonary embolism: (3) Hypertension: (4) Hyperlipidemia: (5) S/P ablation of atrial flutter: Plan 62-year male admitted secondary to symptomatic paroxysmal atrial fibrillation with rapid ventricular response. History of flutter ablation 2021. Symptoms improved with IV diltiazem infusion. Compliant with oral anticoagulation. Recommend 300 mg oral flecainide x1 now to attempt chemical cardioversion. If patient remains in atrial fibrillation will plan elective external direct- current cardioversion in a.m. N.p.o. except medications after midnight. History of Present Illness Reason for Consultation: Paroxysmal atrial fibrillation with rapid ventricular response Requesting Physician: Dr. Collazo Attending Physician: Dejah Collazo, History of Present Illness 62-year-old patient present to the outpatient clinic today for routine follow-up complaining of shortness of breath. ECG confirming atrial fibrillation with rapid ventricular response. Referred to the emergency department for further evaluation and treatment. Describes shortness of breath for nearly 10 days primarily during exertion. No chest discomfort or heaviness. Notes ankle edema near the end of the day. No lightheadedness, dizziness, syncope, or near syncope. Works full-time as a high school industrial arts teacher. Allergies Allergy/AdvReac Type Severity Reaction Status Date / Time No Known Allergies Allergy Verified 07/02/22 07:31 Home Medications Medication Instructions Recorded Confirmed Type apixaban 5 mg tablet (Eliquis) 5 mg PO BID 11/18/21 03/26/23 History aspirin 81 mg capsule 81 mg PO QAM 11/18/21 03/26/23 History diltiazem HCl 180 mg 240 mg PO QAM 11/18/21 03/26/23 History capsule,extended release 24 hr rosuvastatin 10 mg tablet 10 mg PO QPM 11/18/21 03/26/23 History albuterol sulfate 90 mcg/actuation 2 inha inhalation QID PRN 08/16/22 03/26/23 Rx aerosol inhaler shortness of breath or wheezing #1 inhaler montelukast 10 mg tablet 10 mg PO HS 03/26/23 03/26/23 History Patient History Medical History Deep vein thrombosis idiopathic. followed with [facility] Hematology, Dr Palacios. ~2019. no problems since. follows with pcp currently for management. H/O paroxysmal supraventricular tachycardia History of pulmonary embolism History of recent steroid use Hyperlipidemia Hypertension On anticoagulant therapy SCC (squamous cell carcinoma) Surgical History H/O lumbar discectomy (~1989) L4[facility]L5 at [facility] History of repair of rotator cuff History of surgical removal of skin lesion S/P left knee arthroscopy S/P right knee arthroscopy Family History Other No family history of adverse response to anesthesia Social History Smoking Status: Never smoker Second Hand Exposure: No; Do You Dip or Chew Tobacco: No; Hx Alcohol Use: No Hx Substance Use: No Preferred Language: Ethiopian Communication Ability: Effective Braider Tender Required: No Beliefs That Will Affect Care: None Current Living Situation: Spouse Other Information That Helps Us Care for You: No Feels Safe at Home: Yes Safety Concerns: Feels Safe At This Time Assistive Devices: None Review of Systems Review of Systems: All systems reviewed & are unremarkable except as noted in Subjective Physical Exam Constitutional: well nourished; no acute distress Respiratory: no respiratory distress, no labored breathing and no retractions Auscultation: no crackles, no rales, no rhonchi and no wheezes Cardiovascular: Rate/Rhythm: regular rate and regular rhythm Heart Sounds: normal S1 and normal S2; no murmur Vessels: no JVD and no carotid bruit Extremities: no edema Gastrointestinal (Abdomen): Inspection/Auscultation: normal bowel sounds; abdomen not distended Percussion/Palpation: + abdomen rigid; abdomen nontender, no guarding and + abdomen not soft Neurologic: CN's II-XI intact bilaterally and moves all extremities Psychiatric: A+Ox3, euthymic affect Results & Data Vital Signs (Past 12 Hours) Vital Signs Temp Pulse Pulse Resp BP BP Pulse Ox 03/26/23 11:45 90 15 95 03/26/23 11:30 80 20 95 03/26/23 11:30 111/75 03/26/23 11:15 80 18 95 03/26/23 11:00 80 18 95 03/26/23 11:00 130/83 03/26/23 10:45 87 23 94 03/26/23 10:30 84 16 94 03/26/23 10:30 115/86 03/26/23 10:00 117 H 21 130/88 92 03/26/23 10:20 03/26/23 09:55 124 H 03/26/23 09:39 138 H 18 95 03/26/23 09:39 121 H 18 140/102 H 95 03/26/23 09:12 36.1 C L 77 24 118/80 95 O2 Del Method 03/26/23 11:45 03/26/23 11:30 03/26/23 11:30 03/26/23 11:15 03/26/23 11:00 03/26/23 11:00 03/26/23 10:45 03/26/23 10:30 03/26/23 10:30 03/26/23 10:00 03/26/23 10:20 Room Air 03/26/23 09:55 03/26/23 09:39 Room Air 03/26/23 09:39 Room Air 03/26/23 09:12 Room Air Laboratory Results Cardiac Enzymes 03/26/23 Range/Units 09:41 AST 14 (13-39) U/L Troponin I High Sens 5.6 (0-20) pg/ml CBC 03/26/23 Range/Units 09:41 WBC 7.00 (4.8-10.8) K/ul RBC 5.28 (4.70-6.10) M/uL Hgb 15.3 (14.0-18.0) g/dl Hct 46.1 (42.0-52.0) % Plt Count 379 (130-400) K/uL Neut # (Auto) 4.65 (1.40-6.50) K/uL Lymph # (Auto) 1.33 (1.2-3.4) K/uL Cottle # (Auto) 0.84 H (0.11-0.59) K/uL Eos # (Auto) 0.10 (0-0.50) K/uL Baso # (Auto) 0.05 (0-0.2) K/uL Comprehensive Metabolic Panel 03/26/23 Range/Units 09:41 Sodium 139 (136-145) mmol/L Potassium 4.1 (3.5-5.1) mmol/L Chloride 109 H (98-107) mmol/L Carbon Dioxide 24 (21-32) mmol/L BUN 21 (6-23) mg/dl Creatinine 0.68 (0.6-1.4) mg/dl Glucose 89 (70-99(Fasting)) mg/dl Calcium 8.6 (8.6-10.3) mg/dl AST 14 (13-39) U/L ALT 21 (7-52) U/L Alkaline Phosphatase 85 (34-104) U/L Total Protein 6.7 (6.0-8.3) gm/dl Albumin 3.8 (3.4-5.0) gm/dl Intake and Output 03/25/23 03/26/23 03/26/23 22:59 06:59 14:59 Other: Weight 118.8 kg Weight Measurement Method Chair Scale Patient Weight 03/27/23 06:59 Weight 118.8 kg
[2023-03-26] MEDS: MONTELUKAST SODIUM 10 MG TABLET PO SCH (20:41)
[2023-03-26] MEDS: ROSUVASTATIN CALCIUM 10 MG TAB PO SCH (20:41)
[2023-03-26] MEDS: APIXABAN 5 MG TABLET PO SCH (20:41)
--- NOTE | 2023-03-26 21:17 | Communication Note ---
Date of Service: March 26, 2023 Patient converted to NSR as per RN. LISSETTE Cardizem drip. Resume oral Cardizem and initiate flecainide 50 mg BID in a.m. as per discussion with Dr. Velasco of Cardiology.
--- NOTE | 2023-03-27 05:37 | Electrocardiogram Report ---
Test Reason : Blood Pressure : / mmHG Vent. Rate : 138 BPM Atrial Rate : 000 BPM P-R Int : 000 ms QRS Dur : 084 ms QT Int : 304 ms P-R-T Axes : 000 -20 053 degrees QTc Int : 460 ms Atrial fibrillation with rapid ventricular response Septal infarct (cited on or before 16-AUG-2022) Abnormal ECG When compared with ECG of 16-AUG-2022 14:52, Atrial fibrillation has replaced Sinus rhythm Confirmed by Kai Downing ([id number]) on 03/27/2023 5:37:26 AM Referred By: Confirmed By:Kai Downing
[2023-03-27 06:44] LABS: Hematocrit (blood only) 44.8 % (42.0-52.0); Hemoglobin 14.7 g/dl (14.0-18.0); Mean Corpuscular Hemoglobin 29.2 pg (25.0-34.0); Mean Corpuscular Hgb Conc 32.8 g/dL (32.0-36.0); Mean Corpuscular Volume 89.1 fL (80.0-100.0); Platelet Count 349 K/uL (130-400); RDW Coefficient of Variation 13.8 % (11.5-14.5); RDW Standard Deviation 44.2 fL (36.4-46.3); Red Blood Count 5.03 M/uL (4.70-6.10)
[2023-03-27 07:53] LABS: Estimated Average Glucose 128 mg/dl; Hemoglobin A1C 6.1 % (4.5-5.6)
[2023-03-27 08:03] LABS: Calcium 8.2 mg/dl (8.6-10.3); Potassium 4.2 mmol/L (3.5-5.1)
[2023-03-27 08:09] LABS: BUN Creatinine Ratio 29.6 (10-20); Chol HDL Ratio 3.9 (0-5); Creatinine Clr Calc Pharmacy 129.6 ml/min; Est GFR (African American) 111.2 ml/min; Est GFR (Non-African American) 95.9 ml/min
--- NOTE | 2023-03-27 08:39 | Hospitalist Progress Note ---
Date of Service March 27, 2023 Assessment & Plan (1) Atrial fibrillation with RVR: (2) H/O paroxysmal supraventricular tachycardia: (3) Hypertension: (4) Hyperlipidemia: (5) History of pulmonary embolism: Plan: - A-fib with RVR noted with heart rate in the 130s at outpatient cardiology office, patient has previously followed with both Dr. Velasco and Dr. Darby. Was referred to the ER from there. - Initially on diltiazem drip -> on PO diltiazem - Cardiology consulted- pt started on flecainide and converted NSRlast evening -Anticoagulated on Eliquis status post PE which occurred in 2019, patient presumes this is from COVID infection -Patient is on diltiazem p.o. baby aspirin, rosuvastatin, as an outpatient. He reports taking propafenone previously on as needed basis, he has not taken this in many months. Patient also was previously on amiodarone but has been taken off of it. -Status post cardiac ablation approximately [address] Farmer 03/27 Pt currently in sinus rhythm, but reports some shortness of breath/ chest tightness CXR obtained this AM - unremarkable Cardiology following and echo obtained -EF 60 to 65%. There is borderline concentric LVH. LV wall motion is normal. Grade 1 diastolic dysfunction DVT ppx: eliquis CODE: FULL Dispo: From home, likely to remain in the hospital x 1-2 days Admission and Anticipated Discharge Date Admission Date: March 26, 2023 Subjective Pt seen in follow up of Afib w/ RVR Converted yesterday evening to NSR Currently sitting up in bed, in NAD, breathing on RA and saturating 97% Reports some shortness of breath, still and so CXR repeated this AM - unremarkable Pt reports some mild dry cough since Friday. No chest pain/ but reports some poss. chest tightness No fever, chills, no abd. pain, no nausea, vomit. Cardiology following - plan to obtain echo Review of Systems Review of Systems: All systems reviewed & are unremarkable except as noted in Subjective Physical Exam Physical Exam: General: awake, alert, obese M in NAD, breathing on RA, saturating 97% Head: Normocephalic, atraumatic ENT: PERRL, EOMI, mucous membranes moist Chest: Clear to auscultation, on room air, no adventitious breath sounds Cardiac: rrr, no murmur, no JVD Abdominal: NABS x 4 quadrants, soft, nondistended, nontender to palpation Extremities: Normal inspection, no peripheral edema or erythema, moves extremities Neuro: AAO x 3, speech is clear, moves extremities Results & Data Results & Data Vital Signs (Past 12 Hours) Vital Signs Temp Pulse Pulse Resp BP Pulse Ox O2 Del Method 03/27/23 07:22 70 03/27/23 03:26 36.6 C 74 18 139/88 92 Room Air 03/26/23 22:53 85 03/26/23 23:11 36.7 C 78 18 138/91 94 Room Air Laboratory Results 03/27/23 03/27/23 03/27/23 Range/Units 06:17 06:17 06:17 WBC 6.30 (4.8-10.8) K/ul RBC 5.03 (4.70-6.10) M/uL Hgb 14.7 (14.0-18.0) g/dl Hct 44.8 (42.0-52.0) % MCV 89.1 (80.0-100.0) fL MCH 29.2 (25.0-34.0) pg MCHC 32.8 (32.0-36.0) g/dL RDW Std Deviation 44.2 (36.4-46.3) fL RDW Coeff of Stanley 13.8 (11.5-14.5) % Plt Count 349 (130-400) K/uL MPV 9.0 L (9.4-12.4) fL Immature Gran % (Auto) % Neut % (Auto) % Lymph % (Auto) % Archer % (Auto) % Eos % (Auto) % Baso % (Auto) % Neut # (Auto) (1.40-6.50) K/uL Lymph # (Auto) (1.2-3.4) K/uL Archer # (Auto) (0.11-0.59) K/uL Eos # (Auto) (0-0.50) K/uL Baso # (Auto) (0-0.2) K/uL Immature Gran # (Auto) (0.01-0.20) K/uL Sodium 140 (136-145) mmol/L Potassium 4.2 (3.5-5.1) mmol/L Chloride 106 (98-107) mmol/L Carbon Dioxide 29 (21-32) mmol/L Anion Gap 5 (3-11) BUN 24 H (6-23) mg/dl Creatinine 0.81 (0.6-1.4) mg/dl Est Cr Clr Drug Dosing 129.6 ml/min Est GFR ( Amer) 111.2 ml/min Est GFR (Non-Af Amer) 95.9 ml/min BUN/Creatinine Ratio 29.6 H (10-20) Glucose 94 (70-99(Fasting)) mg/dl Estimat Average Glucose 128 mg/dl Hemoglobin A1c 6.1 H (4.5-5.6) % Calcium 8.2 L (8.6-10.3) mg/dl Magnesium 2.0 (1.7-2.4) mg/dl Total Bilirubin (0.2-1.0) mg/dl AST (13-39) U/L ALT (7-52) U/L Alkaline Phosphatase (34-104) U/L Troponin I High Sens (0-20) pg/ml Total Protein (6.0-8.3) gm/dl Albumin (3.4-5.0) gm/dl Globulin (2.5-4.0) gm/dl Albumin/Globulin Ratio (0.9-2) Triglycerides 145 (0-150) mg/dl Cholesterol 146 (0-200) mg/dl LDL Cholesterol, Calc 80 mg/dl VLDL Cholesterol, Calc 29 (0-30) mg/dl HDL Cholesterol 37 mg/dl Cholesterol/HDL Ratio 3.9 (0-5) TSH (0.300-4.500) uIu/ml SARS-CoV-2, RNA, NAAT (NEGATIVE) 03/26/23 03/26/23 03/26/23 Range/Units 20:48 15:00 09:45 WBC (4.8-10.8) K/ul RBC (4.70-6.10) M/uL Hgb (14.0-18.0) g/dl Hct (42.0-52.0) % MCV (80.0-100.0) fL MCH (25.0-34.0) pg MCHC (32.0-36.0) g/dL RDW Std Deviation (36.4-46.3) fL RDW Coeff of Stanley (11.5-14.5) % Plt Count (130-400) K/uL MPV (9.4-12.4) fL Immature Gran % (Auto) % Neut % (Auto) % Lymph % (Auto) % Archer % (Auto) % Eos % (Auto) % Baso % (Auto) % Neut # (Auto) (1.40-6.50) K/uL Lymph # (Auto) (1.2-3.4) K/uL Archer # (Auto) (0.11-0.59) K/uL Eos # (Auto) (0-0.50) K/uL Baso # (Auto) (0-0.2) K/uL Immature Gran # (Auto) (0.01-0.20) K/uL Sodium (136-145) mmol/L Potassium (3.5-5.1) mmol/L Chloride (98-107) mmol/L Carbon Dioxide (21-32) mmol/L Anion Gap (3-11) BUN (6-23) mg/dl Creatinine (0.6-1.4) mg/dl Est Cr Clr Drug Dosing ml/min Est GFR ( Amer) ml/min Est GFR (Non-Af Amer) ml/min BUN/Creatinine Ratio (10-20) Glucose (70-99(Fasting)) mg/dl Estimat Average Glucose mg/dl Hemoglobin A1c (4.5-5.6) % Calcium (8.6-10.3) mg/dl Magnesium (1.7-2.4) mg/dl Total Bilirubin (0.2-1.0) mg/dl AST (13-39) U/L ALT (7-52) U/L Alkaline Phosphatase (34-104) U/L Troponin I High Sens 4.8 5.7 (0-20) pg/ml Total Protein (6.0-8.3) gm/dl Albumin (3.4-5.0) gm/dl Globulin (2.5-4.0) gm/dl Albumin/Globulin Ratio (0.9-2) Triglycerides (0-150) mg/dl Cholesterol (0-200) mg/dl LDL Cholesterol, Calc mg/dl VLDL Cholesterol, Calc (0-30) mg/dl HDL Cholesterol mg/dl Cholesterol/HDL Ratio (0-5) TSH (0.300-4.500) uIu/ml SARS-CoV-2, RNA, NAAT NEGATIVE (NEGATIVE) 03/26/23 03/26/23 03/26/23 Range/Units 09:41 09:41 09:41 WBC 7.00 (4.8-10.8) K/ul RBC 5.28 (4.70-6.10) M/uL Hgb 15.3 (14.0-18.0) g/dl Hct 46.1 (42.0-52.0) % MCV 87.3 (80.0-100.0) fL MCH 29.0 (25.0-34.0) pg MCHC 33.2 (32.0-36.0) g/dL RDW Std Deviation 43.0 (36.4-46.3) fL RDW Coeff of Stanley 13.4 (11.5-14.5) % Plt Count 379 (130-400) K/uL MPV 9.1 L (9.4-12.4) fL Immature Gran % (Auto) 0.4 % Neut % (Auto) 66.5 % Lymph % (Auto) 19.0 % Archer % (Auto) 12.0 % Eos % (Auto) 1.4 % Baso % (Auto) 0.7 % Neut # (Auto) 4.65 (1.40-6.50) K/uL Lymph # (Auto) 1.33 (1.2-3.4) K/uL Archer # (Auto) 0.84 H (0.11-0.59) K/uL Eos # (Auto) 0.10 (0-0.50) K/uL Baso # (Auto) 0.05 (0-0.2) K/uL Immature Gran # (Auto) 0.03 (0.01-0.20) K/uL Sodium 139 (136-145) mmol/L Potassium 4.1 (3.5-5.1) mmol/L Chloride 109 H (98-107) mmol/L Carbon Dioxide 24 (21-32) mmol/L Anion Gap 6 (3-11) BUN 21 (6-23) mg/dl Creatinine 0.68 (0.6-1.4) mg/dl Est Cr Clr Drug Dosing 154.0 ml/min Est GFR ( Amer) 119.5 ml/min Est GFR (Non-Af Amer) 103.1 ml/min BUN/Creatinine Ratio 30.9 H (10-20) Glucose 89 (70-99(Fasting)) mg/dl Estimat Average Glucose mg/dl Hemoglobin A1c (4.5-5.6) % Calcium 8.6 (8.6-10.3) mg/dl Magnesium 2.0 (1.7-2.4) mg/dl Total Bilirubin 0.4 (0.2-1.0) mg/dl AST 14 (13-39) U/L ALT 21 (7-52) U/L Alkaline Phosphatase 85 (34-104) U/L Troponin I High Sens 5.6 (0-20) pg/ml Total Protein 6.7 (6.0-8.3) gm/dl Albumin 3.8 (3.4-5.0) gm/dl Globulin 2.9 (2.5-4.0) gm/dl Albumin/Globulin Ratio 1.3 (0.9-2) Triglycerides (0-150) mg/dl Cholesterol (0-200) mg/dl LDL Cholesterol, Calc mg/dl VLDL Cholesterol, Calc (0-30) mg/dl HDL Cholesterol mg/dl Cholesterol/HDL Ratio (0-5) TSH 2.215 (0.300-4.500) uIu/ml SARS-CoV-2, RNA, NAAT (NEGATIVE) Medications Administered Current Inpatient Medications Acetaminophen (Acetaminophen 325 Mg Tab) 650 mg PO Q4H PRN PRN Reason: Moderate Pain (Scale 4, 5, 6) Stop: 04/25/23 14:28 Apixaban (Apixaban 5 Mg Tablet) 5 mg PO BID [facility] Stop: 04/25/23 20:59 Last Admin: 03/26/23 20:41 Dose: 5 mg Aspirin (Aspirin 81 Mg Ectab) 81 mg PO QAM [facility] Stop: 04/26/23 08:59 Diltiazem HCl (Diltiazem Hcl 240 Mg Capcr) 240 mg PO QAM [facility] Stop: 04/26/23 08:59 Flecainide Acetate (Flecainide Acetate 100 Mg Tablet) 50 mg PO BID [facility] Stop: 04/26/23 08:59 Montelukast Sodium (Montelukast Sodium 10 Mg Tablet) 10 mg PO HS [facility] Stop: 04/25/23 20:59 Last Admin: 03/26/23 20:41 Dose: 10 mg Ondansetron HCl (Ondansetron Inj 2 Mg/Ml 2 Ml Vial) 4 mg IV Q4H PRN PRN Reason: Nausea And Vomiting Stop: 04/25/23 14:28 Rosuvastatin Calcium (Rosuvastatin Calcium 10 Mg Tab) 10 mg PO QPM [facility] Stop: 04/25/23 20:59 Last Admin: 03/26/23 20:41 Dose: 10 mg
[2023-03-27] MEDS ORDERED: FLECAINIDE ACETATE 100 MG TABLET PO SCH (09:00)
[2023-03-27] MEDS: APIXABAN 5 MG TABLET PO SCH ×2 (09:02→20:35)
[2023-03-27] MEDS: ASPIRIN 81 MG ECTAB PO SCH (09:02)
[2023-03-27] MEDS: dilTIAZem HCL 240 MG CAPCR PO SCH (09:03)
--- NOTE | 2023-03-27 09:42 | XRay Report ---
XR chest 1V portable HISTORY: shortness of breath COMPARISON: Chest 03/26/2023. FINDINGS: The lungs are clear. Cardiac silhouette is normal in size. No pleural effusions. No pneumot horax. Cervical spinal fusion hardware is again noted. Mild calcifications within the aortic knob. IMPRESSION: No acute process. ACT 112: Negative or not required by law. Electronically signed by: Vinicius Li M.D. 03/27/2023 9:40 AM
--- NOTE | 2023-03-27 12:10 | Cardiology Progress Note ---
Date of Service March 27, 2023 Assessment & Plan (1) Atrial fibrillation with RVR: (2) History of pulmonary embolism: (3) Hypertension: (4) Hyperlipidemia: (5) S/P ablation of atrial flutter: Plan 62-year male admitted secondary to symptomatic paroxysmal atrial fibrillation with rapid ventricular response. History of flutter ablation 2021. Successfully converted from atrial fibrillation to sinus rhythm with 300 mg of oral flecainide. Recommend flecainide 100 mg twice daily. A repeat limited echocardiogram will be performed due to ongoing dyspnea. Continue diltiazem and Eliquis as previously ordered. Admission and Anticipated Discharge Date Admission Date: March 26, 2023 Subjective Patient seen examined the bedside. Converted to sinus rhythm last night. Remains in sinus rhythm this morning. Shortness of breath improved, however, continues to note mild dyspnea on exertion. No lower extremity edema. Denies orthopnea or PND. Denies chest discomfort. Review of Systems Review of Systems: All systems reviewed & are unremarkable except as noted in Subjective Physical Exam Constitutional: well nourished; no acute distress Respiratory: no respiratory distress, no labored breathing and no retractions Auscultation: no crackles, no rales, no rhonchi and no wheezes Cardiovascular: Rate/Rhythm: regular rate and regular rhythm Heart Sounds: normal S1 and normal S2; no murmur Vessels: no JVD and no carotid bruit Extremities: no edema Gastrointestinal (Abdomen): Inspection/Auscultation: normal bowel sounds; abdomen not distended Percussion/Palpation: + abdomen rigid; abdomen nontender, no guarding and + abdomen not soft Neurologic: CN's II-XI intact bilaterally and moves all extremities Psychiatric: A+Ox3, euthymic affect Results & Data Vital Signs (Past 12 Hours) Vital Signs Temp Pulse Pulse Resp BP Pulse Ox O2 Del Method 03/27/23 09:35 Room Air 03/27/23 08:00 36.7 C 87 20 148/81 H 98 Room Air 03/27/23 07:22 70 03/27/23 03:26 36.6 C 74 18 139/88 92 Room Air Laboratory Results Cardiac Enzymes 03/26/23 03/26/23 Range/Units 15:00 20:48 Troponin I High Sens 5.7 4.8 (0-20) pg/ml Lipids 03/27/23 Range/Units 06:17 Triglycerides 145 (0-150) mg/dl Cholesterol 146 (0-200) mg/dl HDL Cholesterol 37 mg/dl Cholesterol/HDL Ratio 3.9 (0-5) CBC 03/27/23 Range/Units 06:17 WBC 6.30 (4.8-10.8) K/ul RBC 5.03 (4.70-6.10) M/uL Hgb 14.7 (14.0-18.0) g/dl Hct 44.8 (42.0-52.0) % Plt Count 349 (130-400) K/uL Comprehensive Metabolic Panel 03/27/23 Range/Units 06:17 Sodium 140 (136-145) mmol/L Potassium 4.2 (3.5-5.1) mmol/L Chloride 106 (98-107) mmol/L Carbon Dioxide 29 (21-32) mmol/L BUN 24 H (6-23) mg/dl Creatinine 0.81 (0.6-1.4) mg/dl Glucose 94 (70-99(Fasting)) mg/dl Calcium 8.2 L (8.6-10.3) mg/dl Intake and Output 03/26/23 03/27/23 03/27/23 22:59 06:59 14:59 Intake Total 200 / 350 150 / 350 Balance 200 / 350 150 / 350 Intake: IV 50 / 50 dilTIAZem HCL 125 mg In 50 / 50 Dextrose 5% 100 ml @ 5 MG/HR 5 mls/hr IV .Q24H [facility] Rx#: [id number] Oral 150 / 300 150 / 300 Other: # Unmeasured Voids 2 Weight 119.4 kg Weight Measurement Method Built in [facility]
[2023-03-27] MEDS ORDERED: FUROSEMIDE INJ 20 MG/2 ML VIAL IV ONE (15:56)
[2023-03-27] MEDS: FLECAINIDE ACETATE 100 MG TABLET PO SCH (20:34)
[2023-03-27] MEDS: ROSUVASTATIN CALCIUM 10 MG TAB PO SCH (20:34)
[2023-03-27] MEDS: MONTELUKAST SODIUM 10 MG TABLET PO SCH (20:34)
--- NOTE | 2023-03-28 05:22 | Electrocardiogram Report ---
Test Reason : Blood Pressure : / mmHG Vent. Rate : 083 BPM Atrial Rate : 083 BPM P-R Int : 194 ms QRS Dur : 104 ms QT Int : 412 ms P-R-T Axes : 050 -13 050 degrees QTc Int : 484 ms Normal sinus rhythm Septal infarct (cited on or before 16-AUG-2022) Prolonged QT Abnormal ECG When compared with ECG of 26-MAR-2023 09:21, Sinus rhythm has replaced Atrial fibrillation Vent. rate has decreased BY 55 BPM Confirmed by Kai Downing ([id number]) on 03/28/2023 5:22:08 AM Referred By: Rony Darby Confirmed By:Kai Downing
[2023-03-28 07:09] LABS: Hematocrit (blood only) 48.4 % (42.0-52.0); Hemoglobin 15.6 g/dl (14.0-18.0); Mean Corpuscular Hemoglobin 28.8 pg (25.0-34.0); Mean Corpuscular Hgb Conc 32.2 g/dL (32.0-36.0); Mean Corpuscular Volume 89.5 fL (80.0-100.0); Mean Platelet Volume 9.1 fL (9.4-12.4); Platelet Count 366 K/uL (130-400); RDW Coefficient of Variation 13.6 % (11.5-14.5); RDW Standard Deviation 44.5 fL (36.4-46.3); Red Blood Count 5.41 M/uL (4.70-6.10); White Blood Count 6.18 K/ul (4.8-10.8)
[2023-03-28 07:27] LABS: Calcium 8.5 mg/dl (8.6-10.3); Creatinine Clr Calc Pharmacy 127.9 ml/min; Est GFR (African American) 110.6 ml/min; Est GFR (Non-African American) 95.4 ml/min; Magnesium 2.1 mg/dl (1.7-2.4); Phosphorus 2.8 mg/dl (2.5-4.9); Potassium 4.5 mmol/L (3.5-5.1)
[2023-03-28 08:05] VITALS: O2SAT 95
--- NOTE | 2023-03-28 08:07 | Hospitalist Progress Note ---
Date of Service March 28, 2023 Assessment & Plan (1) Atrial fibrillation with RVR: (2) H/O paroxysmal supraventricular tachycardia: (3) Hypertension: (4) Hyperlipidemia: (5) History of pulmonary embolism: Plan: - A-fib with RVR noted with heart rate in the 130s at outpatient cardiology office, patient has previously followed with both Dr. Velasco and Dr. Darby. Was referred to the ER from there. - Initially on diltiazem drip -> on PO diltiazem - Cardiology consulted- pt started on flecainide and converted to NSR - Anticoagulated on Eliquis status post PE which occurred in 2019, patient presumes this is from COVID infection - Patient is on diltiazem p.o. baby aspirin, rosuvastatin, as an outpatient. He reports taking propafenone previously on as needed basis, he has not taken this in many months. Patient also was previously on amiodarone but has been taken off of it. - Status post cardiac ablation approximately [address] Farmer 03/27 Pt currently in sinus rhythm, but reports some shortness of breath/ chest tightness CXR obtained this AM - unremarkable Cardiology following and echo obtained -EF 60 to 65%. There is borderline concentric LVH. LV wall motion is normal. Grade 1 diastolic dysfunction 03/28 Pt feels much improved. Patient will be discharged on flecainide 100 mg twice a day, and hydrochlorothiazide 12.5 mg daily. Cardiology follow-up in 1 to 2 weeks. DVT ppx: eliquis CODE: FULL Dispo: Plan to DC home Admission and Anticipated Discharge Date Admission Date: March 26, 2023 Subjective Pt seen in follow up of Afib w/ RVR Currently in NSR Currently sitting up in bed, in NAD, feels improved No fevers chills, no chest pain, shortness of breath much improved. No abd. pain, n/v Review of Systems Review of Systems: All systems reviewed & are unremarkable except as noted in Subjective Physical Exam Physical Exam: General: awake, alert, obese M in NAD, breathing on RA, saturating 95% Head: Normocephalic, atraumatic ENT: PERRL, EOMI, mucous membranes moist Chest: Clear to auscultation, on room air, no adventitious breath sounds Cardiac: rrr, no murmur, no JVD Abdominal: NABS x 4 quadrants, soft, nondistended, nontender to palpation Extremities: Normal inspection, no peripheral edema or erythema, moves extremities Neuro: AAO x 3, speech is clear, moves extremities Results & Data Results & Data Vital Signs (Past 12 Hours) Vital Signs Temp Pulse Pulse Resp BP BP Pulse Ox 03/28/23 07:05 36.5 C 81 18 133/86 95 03/28/23 04:31 36.5 C 76 16 135/83 91 03/28/23 02:33 69 03/27/23 23:22 36.5 C 76 16 126/75 94 03/27/23 20:22 36.5 C 92 H 18 119/82 94 O2 Del Method 03/28/23 07:05 Room Air 03/28/23 04:31 Room Air 03/28/23 02:33 03/27/23 23:22 Room Air 03/27/23 20:22 Room Air Laboratory Results 03/28/23 03/28/23 03/27/23 Range/Units 06:48 06:48 06:17 WBC 6.18 (4.8-10.8) K/ul RBC 5.41 (4.70-6.10) M/uL Hgb 15.6 (14.0-18.0) g/dl Hct 48.4 (42.0-52.0) % MCV 89.5 (80.0-100.0) fL MCH 28.8 (25.0-34.0) pg MCHC 32.2 (32.0-36.0) g/dL RDW Std Deviation 44.5 (36.4-46.3) fL RDW Coeff of Stanley 13.6 (11.5-14.5) % Plt Count 366 (130-400) K/uL MPV 9.1 L (9.4-12.4) fL Sodium 139 (136-145) mmol/L Potassium 4.5 (3.5-5.1) mmol/L Chloride 105 (98-107) mmol/L Carbon Dioxide 30 (21-32) mmol/L Anion Gap 4 (3-11) BUN 23 24 H (6-23) mg/dl Creatinine 0.82 0.81 (0.6-1.4) mg/dl Est Cr Clr Drug Dosing 127.9 129.6 ml/min Est GFR ( Amer) 110.6 111.2 ml/min Est GFR (Non-Af Amer) 95.4 95.9 ml/min BUN/Creatinine Ratio 28.0 H 29.6 H (10-20) Glucose 101 H 94 (70-99(Fasting)) mg/dl Calcium 8.5 L (8.6-10.3) mg/dl Phosphorus 2.8 (2.5-4.9) mg/dl Magnesium 2.1 (1.7-2.4) mg/dl Triglycerides 145 (0-150) mg/dl Cholesterol 146 (0-200) mg/dl LDL Cholesterol, Calc 80 mg/dl VLDL Cholesterol, Calc 29 (0-30) mg/dl HDL Cholesterol 37 mg/dl Cholesterol/HDL Ratio 3.9 (0-5) Medications Administered Current Inpatient Medications Acetaminophen (Acetaminophen 325 Mg Tab) 650 mg PO Q4H PRN PRN Reason: Moderate Pain (Scale 4, 5, 6) Stop: 04/25/23 14:28 Apixaban (Apixaban 5 Mg Tablet) 5 mg PO BID [facility] Stop: 04/25/23 20:59 Last Admin: 03/27/23 20:35 Dose: 5 mg Aspirin (Aspirin 81 Mg Ectab) 81 mg PO QAM [facility] Stop: 04/26/23 08:59 Last Admin: 03/27/23 09:02 Dose: 81 mg Diltiazem HCl (Diltiazem Hcl 240 Mg Capcr) 240 mg PO QAM [facility] Stop: 04/26/23 08:59 Last Admin: 03/27/23 09:03 Dose: 240 mg Flecainide Acetate (Flecainide Acetate 100 Mg Tablet) 100 mg PO BID [facility] Stop: 04/26/23 20:59 Last Admin: 03/27/23 20:34 Dose: 100 mg Montelukast Sodium (Montelukast Sodium 10 Mg Tablet) 10 mg PO HS [facility] Stop: 04/25/23 20:59 Last Admin: 03/27/23 20:34 Dose: 10 mg Ondansetron HCl (Ondansetron Inj 2 Mg/Ml 2 Ml Vial) 4 mg IV Q4H PRN PRN Reason: Nausea And Vomiting Stop: 04/25/23 14:28 Rosuvastatin Calcium (Rosuvastatin Calcium 10 Mg Tab) 10 mg PO QPM [facility] Stop: 04/25/23 20:59 Last Admin: 03/27/23 20:34 Dose: 10 mg
[2023-03-28] MEDS: dilTIAZem HCL 240 MG CAPCR PO SCH (08:33)
[2023-03-28] MEDS: APIXABAN 5 MG TABLET PO SCH (08:33)
[2023-03-28] MEDS: FLECAINIDE ACETATE 100 MG TABLET PO SCH (08:33)
[2023-03-28] MEDS: ASPIRIN 81 MG ECTAB PO SCH (08:34)
[2023-03-28] MEDS ORDERED: hydroCHLOROthiazide 25 MG TAB PO SCH (09:45)
--- NOTE | 2023-03-28 11:23 | Cardiology Progress Note ---
Date of Service March 28, 2023 Assessment & Plan (1) Atrial fibrillation with RVR: (2) History of pulmonary embolism: (3) Hypertension: (4) Hyperlipidemia: (5) S/P ablation of atrial flutter: Plan 62-year male admitted secondary to symptomatic paroxysmal atrial fibrillation with rapid ventricular response. History of flutter ablation 2021. Successfully converted from atrial fibrillation to sinus rhythm with 300 mg of oral flecainide 03/26/2023. Continue flecainide 100 mg twice daily. Recent cardiac CT demonstrating normal coronary arteries in October 2022. Repeat limited echocardiogram demonstrates preserved biventricular function without significant valvular pathology. Add hydrochlorothiazide due to mild, chronic edema and to improve blood pressure control. Continue diltiazem as ordered. No further inpatient cardiac testing or intervention at this time. Outpatient cardiology follow-up in 1-2 weeks. Admission and Anticipated Discharge Date Admission Date: March 26, 2023 Subjective 62-year-old male seen and examined at the bedside. Shortness of breath improved. No cough, wheeze, orthopnea, or PND. Mild bilateral edema unchanged. Feeling somewhat better after single dose of intravenous furosemide yesterday. Denies lightheadedness, dizziness, syncope, or near syncope. Telemetry reveals sinus rhythm with PVCs. Review of Systems Review of Systems: All systems reviewed & are unremarkable except as noted in Subjective Physical Exam Constitutional: well nourished; no acute distress Respiratory: no respiratory distress, no labored breathing and no retractions Auscultation: no crackles, no rales, no rhonchi and no wheezes Cardiovascular: Rate/Rhythm: regular rate and regular rhythm Heart Sounds: normal S1 and normal S2; no murmur Vessels: no JVD and no carotid bruit Extremities: no edema Gastrointestinal (Abdomen): Inspection/Auscultation: normal bowel sounds; abdomen not distended Percussion/Palpation: + abdomen rigid; abdomen nontender, no guarding and + abdomen not soft Neurologic: CN's II-XI intact bilaterally and moves all extremities Psychiatric: A+Ox3, euthymic affect Results & Data Vital Signs (Past 12 Hours) Vital Signs Temp Pulse Pulse Resp BP BP Pulse Ox 03/28/23 08:00 76 03/28/23 08:00 03/28/23 07:05 36.5 C 81 18 133/86 95 03/28/23 04:31 36.5 C 76 16 135/83 91 03/28/23 02:33 69 03/27/23 23:22 36.5 C 76 16 126/75 94 O2 Del Method 03/28/23 08:00 03/28/23 08:00 Room Air 03/28/23 07:05 Room Air 03/28/23 04:31 Room Air 03/28/23 02:33 03/27/23 23:22 Room Air
[2023-03-28 11:41] VITALS: PULSE 74; TEMP 97.5
--- NOTE | 2023-03-28 12:30 | Discharge Summary ---
Date of Service March 28, 2023 Admission HPI Per Admitting Provider This is a 62-year-old male with PMHx of atrial flutter who underwent an atrial flutter ablation in April 2002 with a history of PAF during the procedure, HTN, HLD, history of PE in 2019 on Eliquis. Patient has been followed by [facility] cardiology, Dr. Darby as an outpatient. He had been on propafenone and amiodarone previously after atrial flutter ablation, however both of these medicines have been stopped he is take p.o. diltiazem.. Starting about 7 days ago he noticed increased palpitations and fatigue. He reports difficulty walking with minimal exertion, states that he feels winded even after 10-20 steps. Patient reports that he in the middle the night when getting up to use the restroom feels that he has a small panic attack because he is so short of breath upon returning and takes him a while to calm down and go back to sleep. Denies orthopnea. He has never required supplemental O2 previously. Patient denies any chest pain, heaviness, nausea or vomiting. From cardiology office the patient was referred to the ER for further treatment of A-fib with RVR as his heart rate was 130. It has now improved to heart rate in the 80s after initiation of Cardizem drip in the ER. Admission Exam Per Admitting Provider General: awake, alert, no apparent distress, + obese with BMI of 34.6 Head: Normocephalic, atraumatic ENT: PERRL, EOMI, no pharyngeal exudate, mucous membranes moist Chest: Clear to auscultation, on room air, no adventitious breath sounds Cardiac: Irregularly irregular, HR in 90s-110s at bedside, no murmur, no JVD, normal peripheral pulses, good capillary refill Abdominal: NABS x 4 quadrants, soft, nondistended, nontender to palpation, no rebound or guarding Extremities: Normal inspection, no peripheral edema or erythema, calfs nontender to palpation Psych: Normal mood and affect Neuro: AAO x 3, strength intact bilaterally and rated 5/5, no motor deficits, speech is clear, no peripheral sensory deficits Principal Diagnosis Afib w/ RVR Discharge Exam General: awake, alert, obese M in NAD, breathing on RA, saturating 95% Head: Normocephalic, atraumatic ENT: PERRL, EOMI, mucous membranes moist Chest: Clear to auscultation, on room air, no adventitious breath sounds Cardiac: rrr, no murmur, no JVD Abdominal: NABS x 4 quadrants, soft, nondistended, nontender to palpation Extremities: Normal inspection, no peripheral edema or erythema, moves extremities Neuro: AAO x 3, speech is clear, moves extremities Discharge Data Allergies Allergy/AdvReac Type Severity Reaction Status Date / Time No Known Allergies Allergy Verified 07/02/22 07:31 Consultations 03/26/23 11:37 ED Decision to Admit Stat 03/26/23 14:29 Consult Cardiology Routine Procedures Performed Operation Date: 03/27/23 08:30 <No data on this case meets the specified criteria> Hospital Course (1) Atrial fibrillation with RVR: (2) H/O paroxysmal supraventricular tachycardia: (3) Hypertension: (4) Hyperlipidemia: (5) History of pulmonary embolism: - A-fib with RVR noted with heart rate in the 130s at outpatient cardiology office, patient has previously followed with both Dr. Velasco and Dr. Darby. Was referred to the ER from there. - Initially on diltiazem drip -> on PO diltiazem - Cardiology consulted- pt started on flecainide and converted to NSR - Anticoagulated on Eliquis status post PE which occurred in 2019, patient presumes this is from COVID infection - Patient is on diltiazem p.o. baby aspirin, rosuvastatin, as an outpatient. He reports taking propafenone previously on as needed basis, he has not taken this in many months. Patient also was previously on amiodarone but has been taken off of it. - Status post cardiac ablation approximately [address] Farmer 03/27 Pt currently in sinus rhythm, but reports some shortness of breath/ chest tightness CXR obtained this AM - unremarkable Cardiology following and echo obtained -EF 60 to 65%. There is borderline concentric LVH. LV wall motion is normal. Grade 1 diastolic dysfunction 03/28 Pt feels much improved. Patient will be discharged on flecainide 100 mg twice a day, and hydrochlorothiazide 12.5 mg daily. Cardiology follow-up in 1 to 2 weeks. Total Time Total Time Spent Total Time Spent (In Minutes): 40 Discharge Plan Discharge Items Patient Disposition: Home - Self-Care Reason For Visit: AFIB, RVR Discharge Diagnosis: Afib w/ RVR Condition on Discharge: Fair Activity: Per Instructions section Non-emergency contact: Primary Care Provider and Electrical Accessories I Assembler Call non-emergency contact if: you have any medication questions and your symptoms worsen Follow-up/Referrals: Valdo Jacobsen, DO [Primary Care Provider] - Diet: Heart Healthy Addtl Attending Provider Instructions: Follow-up with your primary care physician and operator technician. It is recommended that you follow-up with your primary care physician within 1 week. You should see operator technician within 1 to 2 weeks, you will be contacted by cardiology office. You were started on new medication flecainide, for atrial fibrillation, take 100 mg twice a day. Continue taking Cardizem. You were also started on hydrochlorothiazide - 12.5 mg daily. Pending Studies at Discharge: No Stand-Alone Forms: My [employer], Smoking Cessation Medications and DC Order Prescriptions: New flecainide 100 mg Tablet 100 mg PO BID 30 Days Qty: 60 0RF hydrochlorothiazide 25 mg Tablet 12.5 mg PO QAM 30 Days Qty: 15 0RF Continued diltiazem HCl 180 mg capsule,extended release 24hr 240 mg PO QAM rosuvastatin 10 mg tablet 10 mg PO QPM Eliquis 5 mg tablet 5 mg PO BID aspirin 81 mg Capsule 81 mg PO QAM montelukast 10 mg tablet 10 mg PO HS albuterol sulfate 90 mcg/actuation HFA aerosol inhaler 2 inha INH QID PRN (Reason: shortness of breath or wheezing) Qty: 1 0RF Discharge Orders: Discharge Order (Routine); Ordered 03/28/23 Ordered By: Alberto Villarreal/Other Patient Handouts: Prediabetes, 5 Steps for Eating Healthier Admission Data Admit Date/Time: 03/26/23 12:40 Attending Provider: Alberto Castellon Admit Provider: Dejah Collazo Primary Care Provider: Valdo Jacobsen Other Providers: Dejah Collazo ; Jalen Velasco ; Maco Puga
[2023-03-28 12:42] VITALS: BP 135/83
--- NOTE | 2023-03-29 00:12 | Electrocardiogram Report ---
Test Reason : Blood Pressure : / mmHG Vent. Rate : 079 BPM Atrial Rate : 079 BPM P-R Int : 190 ms QRS Dur : 100 ms QT Int : 406 ms P-R-T Axes : 049 -01 045 degrees QTc Int : 465 ms Normal sinus rhythm Septal infarct (cited on or before 16-AUG-2022) Abnormal ECG When compared with ECG of 26-MAR-2023 20:21, Questionable change in initial forces of Septal leads Confirmed by Kai Downing ([id number]) on 03/29/2023 12:12:34 AM Referred By: Rony Darby Confirmed By:Kai Downing
--- NOTE | 2023-03-29 06:30 | Electrocardiogram Report ---
Test Reason : Blood Pressure : / mmHG Vent. Rate : 080 BPM Atrial Rate : 080 BPM P-R Int : 192 ms QRS Dur : 100 ms QT Int : 420 ms P-R-T Axes : 000 194 151 degrees QTc Int : 484 ms Normal sinus rhythm Limb lead reversal Possible Septal infarct Abnormal ECG When compared with ECG of 27-MAR-2023 16:14, Limb lead reversal is now present Questionable change in initial forces of Anteroseptal leads Confirmed by Kai Downing ([id number]) on 03/29/2023 6:29:52 AM Referred By: Rony Darby Confirmed By:Kai Downing
== END 2023-03-28 13:07 | disposition home or self-care (01) | DRG 310 ==
LOC: ED 09:03 → SUATTDRO 12:40 → 2S 12:40